=== PATIENT | female | born 1965 | race Caucasian/White ===

== ENCOUNTER 2017-06-15 18:49 | Emergency (ER) | payer MEDICAID ==
[2017-06-15] MEDS ORDERED: Sodium Chloride 0.9% 1,000 ML IV STA (20:59)
[2017-06-15] MEDS ORDERED: Sodium Chloride 0.9% 10 ML Syringe FLUSH PRN ×2 (20:59→21:34)
[2017-06-15] MEDS ORDERED: Ondansetron 4 MG/2 ML SDV IVPUSH ONE (21:03)
[2017-06-15] MEDS ORDERED: HYDROmorphone 1 MG/ML Syringe IVPUSH ONE (21:03)
--- NOTE | 2017-06-15 21:07 | EDM.PDOC ---
ED HPI GENERAL MEDICAL PROBLEM - General Chief Complaint: Abdominal Pain Stated Complaint: RT SIDE ABD PAIN Time Seen by Provider: 06/15/17 20:48 Source of Information: Reports: Patient, Family, Provider, RN Notes Reviewed History Limitations: Reports: No Limitations - History of Present Illness INITIAL COMMENTS - FREE TEXT/NARRATIVE: 52-year-old female presents emergency department today sent over from clinic for right sided abdominal pain, she states really pain is developed over the last 24 hours has nausea with this describes the pain is constant denies any difficulty with urination or bowel movements, blood work done in the clinic show CBC with an elevated white count of 17,000 and a urinalysis shows trace leukocyte esterase moderate squamous cells. 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 OB/BYN History: R OVARY REMOVED Social & Family History - Tobacco Use Smoking Status *Q: Current Every Day Smoker Years of Tobacco use: 40 Packs/Tins Daily: 0.5 Used Tobacco, but Quit: No Second Hand Smoke Exposure: Yes - Alcohol Use Days Per Week of Alcohol Use: 1 Number of Drinks Per Day: 2 Total Drinks Per Week: 2 - Recreational Drug Use Recreational Drug Use: No ED ROS GENERAL - Review of Systems Review Of Systems: See Below Constitutional: Denies: Fever, Chills HEENT: Reports: No Symptoms Respiratory: Reports: No Symptoms Cardiovascular: Reports: No Symptoms GI/Abdominal: Reports: Abdominal Pain, Nausea. Denies: Constipation, Diarrhea, Vomiting : Reports: Flank Pain. Denies: Discharge Musculoskeletal: Reports: No Symptoms Skin: Reports: No Symptoms Neurological: Reports: No Symptoms ED EXAM, GI/ABD - Physical Exam Exam: See Below Exam Limited By: No Limitations General Appearance: Alert, WD/WN, No Apparent Distress Head: Atraumatic, Normocephalic Neck: Normal Inspection, Supple, Non-Tender, Full Range of Motion Respiratory/Chest: No Respiratory Distress, Lungs Clear, Normal Breath Sounds, No Accessory Muscle Use Cardiovascular: Regular Rate, Rhythm, No Murmur GI/Abdominal: Soft, Tenderness (Generalized tenderness of the right flank area) Back Exam: Normal Inspection, Full Range of Motion. No: CVA Tenderness (R), CVA Tenderness (L) Neurological: Alert, Oriented Course - Vital Signs Last Recorded V/S: Last Vital Signs Temp 97.8 F 06/15/17 20:42 Pulse 80 06/15/17 20:42 Resp 20 06/15/17 20:42 BP 141/85 H 06/15/17 20:42 Pulse Ox 95 06/15/17 20:42 - Orders/Labs/Meds Orders: Active Orders 24 hr Category Date Time Status Peripheral IV Care [RC] . DIRECTED Care 06/15/17 21:00 Active Abdomen Pelvis w Cont [CT] Urgent Exams 06/15/17 20:59 Taken Iopamidol [Isovue-300 (61%)] Med 06/15/17 21:45 Active 110 ml IV . DIRECTED Sodium Chloride 0.9% [Saline Flush] Med 06/15/17 20:59 Active 10 ml FLUSH ASDIRECTED PRN Sodium Chloride 0.9% [Saline Flush] Med 06/15/17 21:34 Active 10 ml FLUSH ONETIME PRN Peripheral IV Insertion Adult [OM.PC] Urgent Oth 06/15/17 20:59 Ordered Medication Orders Iopamidol (Isovue-300 (61%)) 110 ml IV . DIRECTED GRZEGORZ Last Admin: 06/15/17 22:24 Dose: 150 ml Sodium Chloride (Saline Flush) 10 ml FLUSH ASDIRECTED PRN PRN Reason: Keep Vein Open Last Admin: 06/15/17 21:53 Dose: 10 ml Sodium Chloride (Saline Flush) 10 ml FLUSH ONETIME PRN PRN Reason: PER RADIOLOGY PROTOCOL Last Admin: 06/15/17 22:23 Dose: 10 ml Labs: Laboratory Tests 06/15/17 06/15/17 Range/Units 21:10 21:10 Sodium 139 L (140-148) mmol/L Potassium 3.9 (3.6-5.2) mmol/L Chloride 105 (100-108) mmol/L Carbon Dioxide 27 (21-32) mmol/L Anion Gap 10.9 (5.0-14.0) mmol/L BUN 18 (7-18) mg/dL Creatinine 0.7 (0.6-1.0) mg/dL Est Cr Clr Drug Dosing 77.77 mL/min Estimated GFR (MDRD) > 60 (>60) Glucose 98 (74-106) mg/dL Lactic Acid 1.3 (0.4-2.0) mmol/L Calcium 8.5 (8.5-10.1) mg/dL Total Bilirubin 0.2 (0.2-1.0) mg/dL AST 15 (15-37) U/L ALT 45 (12-78) U/L Alkaline Phosphatase 92 (46-116) U/L Total Protein 7.5 (6.4-8.2) g/dL Albumin 3.4 (3.4-5.0) g/dL Globulin 4.1 H (2.3-3.5) g/dL Albumin/Globulin Ratio 0.8 L (1.2-2.2) Lipase 149 (73-393) U/L Meds: Medications Generic Name Dose Route Start Last Admin Trade Name Freq PRN Reason Stop Dose Admin Iopamidol 110 ml 06/15/17 21:45 06/15/17 22:24 Isovue-300 (61%) IV 150 ml . DIRECTED GRZEGORZ Administration Sodium Chloride 10 ml 06/15/17 20:59 06/15/17 21:53 Saline Flush FLUSH 10 ml ASDIRECTED PRN Administration Keep Vein Open Sodium Chloride 10 ml 06/15/17 21:34 06/15/17 22:23 Saline Flush FLUSH 10 ml ONETIME PRN Administration PER RADIOLOGY PROTOCOL Discontinued Medications Generic Name Dose Route Start Last Admin Trade Name Freq PRN Reason Stop Dose Admin Hydromorphone HCl 1 mg 06/15/17 21:03 06/15/17 21:56 Dilaudid IVPUSH 06/15/17 21:04 1 mg ONETIME ONE Administration Sodium Chloride 1,000 mls @ 500 mls/hr 06/15/17 20:59 06/15/17 21:50 Normal Saline IV 06/15/17 22:58 500 mls/hr .BOLUS STA Administration Sodium Chloride 73 mls @ 3 mls/sec 06/15/17 21:34 06/15/17 22:23 Normal Saline IV 06/15/17 21:35 3 mls/sec ONETIME ONE Administration Ondansetron HCl 4 mg 06/15/17 21:03 06/15/17 21:53 Zofran IVPUSH 06/15/17 21:04 4 mg ONETIME ONE Administration Departure - Departure Time of Disposition: 23:09 Disposition: Home, Self-Care 01 Condition: Fair Clinical Impression: Right flank pain - Discharge Information Forms: ED Department Discharge Additional Instructions: Use hydrocodone as needed for pain control, Please followup with your primary care provider in 3-5 days if not better, please call return to the emergency department with worsening of symptoms. - My Orders Last 24 Hours: My Active Orders 06/15/17 20:59 Abdomen Pelvis w Cont [CT] Urgent Sodium Chloride 0.9% [Saline Flush] 10 ml FLUSH ASDIRECTED PRN Peripheral IV Insertion Adult [OM.PC] Urgent 06/15/17 21:00 Peripheral IV Care [RC] . DIRECTED 06/15/17 21:34 Sodium Chloride 0.9% [Saline Flush] 10 ml FLUSH ONETIME PRN 06/15/17 21:45 Iopamidol [Isovue-300 (61%)] 110 ml IV . DIRECTED - Assessment/Plan Last 24 Hours: My Active Orders 06/15/17 20:59 Abdomen Pelvis w Cont [CT] Urgent Sodium Chloride 0.9% [Saline Flush] 10 ml FLUSH ASDIRECTED PRN Peripheral IV Insertion Adult [OM.PC] Urgent 06/15/17 21:00 Peripheral IV Care [RC] . DIRECTED 06/15/17 21:34 Sodium Chloride 0.9% [Saline Flush] 10 ml FLUSH ONETIME PRN 06/15/17 21:45 Iopamidol [Isovue-300 (61%)] 110 ml IV . DIRECTED Plan: Assessment Acuity = acute Site and laterality = right flank abdominal pain Etiology = unclear etiology Manifestations = none Location of injury = Home Lab values = CMP within normal limits CT scan shows no acute abdominal process Plan She will be discharged home with hydrocodone No. 10 follow-up with primary 3-5 days for reevaluation Patient was in agreement with the plan all questions were answered, they were instructed to return to the emergency department or call for worsening symptoms. This note was dictated using [employer] voice recognition software please call with any questions.
[2017-06-15] MEDS ORDERED: Iopamidol 612 MG/ML 150 ML Bottle IV SCH (21:45)
[2017-06-15 23:30] VITALS: BP 114/73
== END 2017-06-15 23:32 | disposition home or self-care (01) ==
LOC: JP.ED 18:49
DX: R10.9 Unspecified abdominal pain (principal); J45.909 Unspecified asthma, uncomplicated; F17.210 Nicotine dependence, cigarettes, uncomplicated; Z79.899 Other long term (current) drug therapy
CPT/HCPCS: 36415; 74177; 80053; 83605; 83690; 96374; 96375; 99284; J1170; J2405; J7030; J7040; J7050

== ENCOUNTER 2017-07-03 10:58 | Inpatient (IN) | payer MEDICAID ==
[~2017-07-03 10:58] MED LIST: Meropenem 500 MG SDV ONE
[2017-07-03] MEDS ORDERED: Dextrose 5%-Lactated Ringers 1,000 ML IV SCH (11:00)
[2017-07-03] MEDS ORDERED: fentaNYL 25 MCG/HR Transdermal Patch TRDERM SCH (11:00)
[2017-07-03] MEDS ORDERED: Albuterol/Ipratropium 3.0-0.5 MG/3 ML Neb Soln NEB ONE (11:30)
[2017-07-03] MEDS ORDERED: Isosulfan Blue 5 ML SDV ONE (13:19)
[2017-07-03] MEDS ORDERED: Rocuronium 50 MG/5 ML Vial ONE (13:41)
[2017-07-03] MEDS ORDERED: Propofol 200 MG/20 ML SDV ONE (13:41)
[2017-07-03] MEDS ORDERED: Lidocaine 1% 2 ML ONE (13:41)
[2017-07-03] MEDS ORDERED: Ondansetron 4 MG/2 ML SDV ONE (13:42)
[2017-07-03] MEDS ORDERED: Neostigmine Methylsulfate 1 MG/ML 5 ML Syringe ONE (13:42)
[2017-07-03] MEDS ORDERED: Scopolamine 1.5 MG Transdermal Patch ONE (13:42)
[2017-07-03] MEDS ORDERED: Glycopyrrolate 0.2 MG/ML 5 ML MDV ONE (13:42)
[2017-07-03] MEDS ORDERED: Dexamethasone 4 MG/ML SDV ONE (13:42)
[2017-07-03] MEDS ORDERED: Ketorolac 60 MG/2 ML SDV ONE (13:42)
[2017-07-03] MEDS ORDERED: fentaNYL 100 MCG/2 ML SDV ONE ×2 (13:43→15:14)
[2017-07-03] MEDS ORDERED: Midazolam 1 MG/ML 2 ML SDV ONE (13:44)
[2017-07-03] MEDS ORDERED: Morphine 4 MG/ML Syringe ONE (14:46)
[2017-07-03] MEDS ORDERED: Naloxone 0.4 MG/ML SDV IVPUSH PRN (15:00)
[2017-07-03] MEDS: HYDROmorphone/Normal Saline 15 MG/30 ML PCA IV PRN (15:04)
[2017-07-03] MEDS ORDERED: Ondansetron 4 MG/2 ML SDV IV PRN (17:27)
[2017-07-03] MEDS ORDERED: Albuterol/Ipratropium 3.0-0.5 MG/3 ML Neb Soln INH PRN (17:29)
[2017-07-03] MEDS: cefOXitin 2 GM in Sodium Chloride 0.9% 50 ML IV ONE ×2 (17:38→18:58)
[2017-07-03] MEDS: cefOXitin 2 GM in Sodium Chloride 0.9% 50 ML IV SCH (18:38)
[2017-07-03] MEDS: VERIFY FENT PATCH TOP SCH ×2 (19:06→20:46)
[2017-07-03] MEDS: VERIFY SCOP PATCH TOP SCH (19:07)
[2017-07-03] MEDS: Pantoprazole 40 MG Vial IV SCH (19:54)
[2017-07-03] MEDS: Formoterol/Mometasone 200-5 MCG 8.8 GM Inhaler IH SCH (20:40)
[2017-07-03] MEDS: Albuterol/Ipratropium 3.0-0.5 MG/3 ML Neb Soln INH SCH (20:42)
[2017-07-03] MEDS: Dextrose 5%-Lactated Ringers 1,000 ML IV SCH (23:00)
[2017-07-04] MEDS: cefOXitin 2 GM in Sodium Chloride 0.9% 50 ML IV SCH ×2 (00:30→05:10)
[2017-07-04] MEDS: Dextrose 5%-Lactated Ringers 1,000 ML IV SCH ×4 (04:28→21:22)
[2017-07-04] MEDS: Albuterol/Ipratropium 3.0-0.5 MG/3 ML Neb Soln INH SCH ×4 (07:22→20:40)
[2017-07-04] MEDS: Formoterol/Mometasone 200-5 MCG 8.8 GM Inhaler IH SCH ×2 (07:29→20:20)
[2017-07-04] MEDS: VERIFY FENT PATCH TOP SCH ×2 (08:30→20:40)
[2017-07-04] MEDS: VERIFY SCOP PATCH TOP SCH (08:30)
[2017-07-04] MEDS: Allopurinol 300 MG Tab PO SCH (08:50)
[2017-07-04] MEDS ORDERED: Cyclobenzaprine 10 MG Tab PO PRN (09:03)
[2017-07-04] MEDS: HYDROmorphone/Normal Saline 15 MG/30 ML PCA IV PRN (13:25)
[2017-07-04] MEDS: Pantoprazole 40 MG Vial IV SCH (20:20)
[2017-07-04] MEDS: hydrOXYzine HCl 25 MG Tab PO PRN (21:31)
[2017-07-05] MEDS: Dextrose 5%-Lactated Ringers 1,000 ML IV SCH ×2 (05:22→15:43)
[2017-07-05] MEDS: Formoterol/Mometasone 200-5 MCG 8.8 GM Inhaler IH SCH ×2 (07:39→20:10)
[2017-07-05] MEDS: Albuterol/Ipratropium 3.0-0.5 MG/3 ML Neb Soln INH SCH ×4 (07:39→20:10)
[2017-07-05] MEDS: VERIFY FENT PATCH TOP SCH ×2 (08:09→20:11)
[2017-07-05] MEDS: Allopurinol 300 MG Tab PO SCH (08:09)
[2017-07-05] MEDS: VERIFY SCOP PATCH TOP SCH (08:10)
[2017-07-05] MEDS: Bisacodyl 5 MG Tab PO SCH ×2 (09:26→20:10)
[2017-07-05] MEDS: Magnesium Sulfate/Water 2 GM in Premix Bag 1 BAG IV SCH ×3 (09:27→20:10)
[2017-07-05] MEDS ORDERED: Potassium Phosphates 25 MMOLE in Sodium Chloride 0.9% 500 ML IV ONE (09:30)
--- NOTE | 2017-07-05 13:38 | PN ---
DATE OF SERVICE: 07/04/2017 The patient is postop day 1 from a total abdominal hysterectomy and left salpingo- oophorectomy with pelvic lymph node sampling. Clinically, she has done well at this point and will begin a clear liquid diet. Urine output is making a cut, so we will leave the IV running somewhat faster until later today. Otherwise, begin a clear liquid diet muscle spasm. We will add some Flexeril and/or Vistaril p.r.n. for that. Otherwise, maximize activity with a pulmonary toilet. Pete Barboza MD /[id number]
[2017-07-05] MEDS ORDERED: Potassium Phosphates 20 MMOLE in Sodium Chloride 0.9% 250 ML IV ONE (14:30)
[2017-07-05] MEDS: Pantoprazole 40 MG Tab.CR PO SCH (15:45)
[2017-07-05] MEDS: HYDROmorphone/Normal Saline 15 MG/30 ML PCA IV PRN (18:29)
[2017-07-06] MEDS: Magnesium Sulfate/Water 2 GM in Premix Bag 1 BAG IV SCH ×2 (02:17→09:56)
[2017-07-06] MEDS: Dextrose 5%-Lactated Ringers 1,000 ML IV SCH (04:51)
[2017-07-06] MEDS: Albuterol/Ipratropium 3.0-0.5 MG/3 ML Neb Soln INH SCH ×4 (07:32→20:18)
[2017-07-06] MEDS: Formoterol/Mometasone 200-5 MCG 8.8 GM Inhaler IH SCH ×2 (07:32→20:16)
--- NOTE | 2017-07-06 08:47 | PN ---
DATE OF SERVICE: 07/05/2017 The patient is postop day #2 from her hysterectomy and wedge resection of the adherent sigmoid colon, along with pelvic lymph node sampling. Clinically, she has done well. The Bauer catheter is removed today, and she has been able to urinate satisfactorily. The patient tolerated the clear-liquid diet very well, will go to full-liquid diet and begin some scheduled Dulcolax oral tablets, back down the IV rate, probably switch over to oral pain medication tomorrow. Pete Barboza MD /[id number]
--- NOTE | 2017-07-06 08:50 | PN ---
DATE OF SERVICE: 07/06/2017 SUBJECTIVE: Linda is postop day 3 following a total abdominal hysterectomy. She has been up ambulating. Her vital signs have been stable. Oral intake was 1720. She is passing flatus, but has not had a bowel movement. TWILA drains have put out 30 and 90 mL of a light pink drainage respectively. OBJECTIVE: GENERAL: Linda is a pleasant 52-year-old female. She is sitting up in the chair. Alert and orientated. VITAL SIGNS: TPR is 98.2, 88, 16, and blood pressure 118/59. HEENT: Negative. NECK: Supple. HEART: Regular rate and rhythm. LUNGS: Clear. ABDOMEN: Occlusive dressing on and abdominal binder has been on. EXTREMITIES: Without peripheral edema. ASSESSMENT: Exploratory laparotomy with total abdominal hysterectomy and left salpingo- oophorectomy, partial resection of sigmoid colon, mobilization of the omentum into pelvis for postmenopausal bleeding, dense adherence of right side of the uterus to sigmoid colon. Date of surgery, 07/03/2017. PLAN: 1. Discontinue FUEL MANAGER and continuous pulse ox. 2. Replace fentanyl patch. 3. Percocet 5/325 mg 1 to 2 every 4 hours p.r.n. pain. 4. Regular diet. 5. Work on good pulmonary toilet. 6. We will evaluate p.r.n. or in a.m. June Darby PA-C /[id number]
[2017-07-06] MEDS ORDERED: Scopolamine 1.5 MG Transdermal Patch TOP SCH (09:00)
[2017-07-06] MEDS: Acetaminophen/oxyCODONE 325-5 MG Tab PO PRN ×3 (09:51→20:19)
[2017-07-06] MEDS: Allopurinol 300 MG Tab PO SCH (09:55)
[2017-07-06] MEDS: Bisacodyl 5 MG Tab PO SCH ×2 (09:55→20:16)
[2017-07-06] MEDS: VERIFY FENT PATCH TOP SCH ×2 (09:57→19:59)
[2017-07-06] MEDS: VERIFY SCOP PATCH TOP SCH (09:57)
[2017-07-06] MEDS: Magnesium Oxide 400 MG Tab PO SCH (14:06)
[2017-07-06] MEDS ORDERED: fentaNYL 25 MCG/HR Transdermal Patch TRDERM SCH (14:30)
--- NOTE | 2017-07-06 15:32 | OR ---
DATE OF PROCEDURE: 07/03/2017 PREOPERATIVE DIAGNOSIS: Postmenopausal vaginal bleeding. POSTOPERATIVE DIAGNOSES: 1. Postmenopausal vaginal bleeding. 2. Dense adherence of right side of the uterus to sigmoid colon. OPERATIVE PROCEDURE: 1. Cervical injection of isosulfan blue dye for identification of sentinel lymph nodes (27816). 2. Exploratory laparotomy with: a. Total abdominal hysterectomy with left salpingo-oophorectomy and pelvic lymph node sampling (84826). b. Partial resection of sigmoid colon (53206). c. Mobilization of omentum into pelvis to displace small bowel from pelvis (52741). ANESTHESIA: General. ASSISTANTS: 1. June Darby PA-C. 2. SUSHIL Lord. INDICATION FOR PROCEDURE: This is a 52-year-old presenting with postmenopausal vaginal bleeding, and this has been ongoing for some months at this time. Ultrasound showed an endometrial stripe at the upper limit of normal, along with a fibroid. The patient did not want to have any preoperative biopsies of the endometrium. The plan will be to proceed with a total abdominal hysterectomy and pelvic lymph node sampling. The latter will be done in the event that there might be an endometrial carcinoma diagnosed on the final examination. We will inject some sentinel lymph node dye in the cervical area after induction, and this would allow us to most likely obtain sentinel lymph nodes, as opposed to full lymph node dissection, the lymph node dissection again being done in the event that there might be endometrial carcinoma identified on the final pathology report. Potential risks of the procedure including bleeding, infection, injury to the viscera in the area, injury to the urinary tract, such as the ureter or bladder, were all reviewed, along with the possibility of needing additional operative procedures for additional staging, depending on the pathologic findings, were gone over, and the patient wishes to proceed. DETAILS OF PROCEDURE: The patient was taken to the operating room and after general endotracheal anesthesia was induced, she was initially placed in a lithotomy position. The vaginal area was then prepped, and on each side of the vagina with a 22-gauge spinal needle, 2 mL of isosulfan blue dye were injected, and at that point the patient was then placed into a supine position, after a Bauer catheter had been placed. The abdomen was then prepped and draped and a transverse Pfannenstiel incision was made and carried down through the skin and subcutaneous tissue, (it had been discussed preoperatively that, should a more advanced malignancy be identified, we might need to have a secondary vertical incision for honeycutt staging) and this incision was then carried down through the skin and subcutaneous tissue and anterior rectus sheath. Subrectus sheath flaps were then raised superiorly and inferiorly and the midline peritoneum divided. The area of the pelvis was then inspected, some saline was placed and washings were obtained for cytology. There did not appear to be any gross evidence of malignancy. There was a dense adherence of the upper right side of the uterine fundus to the sigmoid colon. This was at the site of previous salpingo-oophorectomy, and for whatever reason, that healed with quite intense inflammation. As one tried to free that area up, it became evident that it was densely adherent enough to the sigmoid colon that a small ridge of sigmoid colon was then excised with a JAI purple load and left attached to the uterus. At this point, the uterus was mobilized upward and the left ovary and tube were then divided away from the infundibulopelvic ligament and broad ligament, and at that point, the broad ligament and round ligament on the right side were also divided. This all being done with kasi. The peritoneal reflection of bladder on the uterus was divided and the bladder was dissected down onto the upper vagina. The cardinal ligaments were then taken with JAI blue loads. At that point, the uterosacral ligaments were clamped and initially suture-ligated with 0 Vicryl stitch. The vagina just below the cervix was divided with electrocautery and the specimen consisting of the uterus and left tube and ovary were delivered from the field. The area was opened, and there was not any obvious evidence of endometrial carcinoma. The vaginal cuff was then closed with continuation of uterosacral ligament stitches, and at that point, the abdomen was irrigated with meropenem-containing saline solution. The dye could be seen going into the left side of the pelvis along the internal and external iliac chain. The peritoneum over the left side of the pelvis was then incised and the first node identified with blue dye, and this was excised and sent for pathologic examination. Above that, no additional nodes appeared to be dyed. On the right side there appeared to be blockade to the lymphatic flow, as there was no blue dye coming beyond the medial edge of the cervix. This is probably related to the previous surgery in that area, along with the dense inflammation. There is no gross lymphadenopathy present, some fatty and lymphatic tissue along that area was excised, but at this time, based on the findings thus far, there did not appear to be justification for a full pelvic lymph node dissection on that side. At that point the area of dissection was inspected, no further problems were noted. The Noble-Elizabeth drain was then placed through a stab wound in the mid abdomen, taken down into the depths of the pelvis over the vaginal cuff closure. The omentum was then mobilized downward into the pelvis to displace the small bowel out of the pelvis. In the event at some point the patient might need some radiation treatment and following this the midline peritoneum was approximated with a #2 Vicryl stitch, as was the anterior rectus sheath. Subcutaneous tissue was approximated with some 3-0 Vicryl stitch. A 10-Korean round Noble-Elizabeth drain was placed across the incision in the subcutaneous tissue plane and the skin was then closed with a 4-0 Vicryl subcuticular stitch. Steri- Strips were applied and drains fixed to skin with some 4-0 Vicryl stitch. The patient was taken to the recovery room in satisfactory condition. Physician clinic assistant, June Daryb PA-C, played an essential role in assisting in this case, helping to position the patient, retract structures as needed, as well as suturing and cutting sutures when indicated. Her presence improved the patient's safety and decreased operative time. Pete Barboza MD /[id number]
[2017-07-06] MEDS: Pantoprazole 40 MG Tab.CR PO SCH (16:16)
[2017-07-06] MEDS: hydrOXYzine HCl 25 MG Tab PO PRN (23:24)
[2017-07-07] MEDS: Acetaminophen/oxyCODONE 325-5 MG Tab PO PRN ×2 (01:43→05:48)
[2017-07-07] MEDS: Albuterol/Ipratropium 3.0-0.5 MG/3 ML Neb Soln INH SCH (07:24)
[2017-07-07] MEDS: Formoterol/Mometasone 200-5 MCG 8.8 GM Inhaler IH SCH (07:27)
[2017-07-07] MEDS: VERIFY FENT PATCH TOP SCH (08:48)
[2017-07-07] MEDS: VERIFY SCOP PATCH TOP SCH (08:49)
[2017-07-07] MEDS: Magnesium Oxide 400 MG Tab PO SCH (09:20)
[2017-07-07] MEDS: Allopurinol 300 MG Tab PO SCH (09:20)
[2017-07-07] MEDS: Bisacodyl 5 MG Tab PO SCH (09:20)
[2017-07-07 09:52] VITALS: BP 114/63
--- NOTE | 2017-07-07 15:02 | DISCH ---
ADMISSION DIAGNOSES: 1. Post menopausal bleeding. 2. Asthma. 3. Hypertension. 4. Nicotine addiction. DISCHARGE DIAGNOSES: 1. Cervical injection of Isosulfan blue dye for identification of sentinel lymph nodes. 2. Exploratory laparotomy with total abdominal hysterectomy with left salpingo- oophorectomy and pelvic lymph node sampling, partial resection of sigmoid colon, mobilization of the omentum into the pelvis, displaced small bowel from pelvis for post menopausal vaginal bleeding and dense adhesions of right side of the uterus to sigmoid colon. HISTORY: Linda Renae is a 52-year-old female presenting with postmenopausal vaginal bleeding which has been ongoing for several months. After preoperative evaluation and discussion of possible risks and possible complications, she wished to proceed with surgical procedure. HOSPITAL COURSE: Linda underwent surgery on 07/03/2017. She had no operative complications. On postoperative day #1, she was started on a clear liquid diet and Flexeril for muscle spasms. On postoperative day #2, Bauer catheter was removed, and she was urinating without difficulty. Her diet was advanced to a full liquid diet, and she was started on Dulcolax for bowel stimulation. On postoperative day #3, her EMT I/99 was discontinued. She was started on oral pain medication and regular diet. Her bowels still have not moved, and her activity was good. On postoperative day #4, she was ready to be discharged to home. She has not had a bowel movement but pain is controlled. Her activity is good and vital signs have been stable. PHYSICAL EXAMINATION: GENERAL: Linda Renae is a 52-year-old female. VITAL SIGNS: Height is 5 feet 3.5 inches, weight is 200 pounds, BMI is 34, TPR 97.1, 78, 18, blood pressure 132/74. HEENT: Negative. NECK: Supple. HEART: Regular rate and rhythm. LUNGS: Clear. ABDOMEN: Aquacel dressing is on, this will be removed prior to discharge. Her TWILA drains #1 and #2 have put out 7 and 30 mL respectively. TWILA drain #2 will be removed prior to discharge. EXTREMITIES: Without peripheral edema. DISPOSITION: Discharged to home. CONDITION: Stable and improving. MEDICATIONS: 1. Percocet 5/325 mg 1 to 2 oral q.4 hours p.r.n. pain #50. 2. Bisacodyl, Dulcolax 10 mg twice daily. 3. Milk of magnesia 30 mL, she is to take 1 daily. Two were sent home with the patient. 4. Magnesium 400 mg p.o. daily. 5. Fentanyl Duragesic patch 25 mcg transderm. She is to remove on 07/10/2017. Home medications: 1. Albuterol sulfate 8.5 g inhalation daily. 2. Allopurinol 100 mg oral daily. 3. Advair 250/50 Diskus one puff inhalation every 12 hours. 4. Motrin 800 mg every 6 hours p.r.n. DIET: After discharge, usual diet as tolerated. Drink 8 to 10 glasses of water a day. ACTIVITY: As tolerated. No lifting greater than 10 pounds for 6 weeks[address] Driving, do not drive on pain medication. Shower bathing, may shower. Notify provider if any fever, pain nausea, or vomiting. Wound incision care, keep site clean and dry. Wear abdominal binder for 2 weeks and then as tolerated. SPECIAL INSTRUCTION: Use incentive spirometer 10 times every hour while awake for 2 weeks.
== END 2017-07-07 09:40 | disposition home or self-care (01) | DRG 743 ==
LOC: JP.SDSSCHI 10:58 → JP.SDS 10:58 → EDSTATUS 16:25 → UNDOADMIN 17:10 → JP.2SS 17:10
PROVIDERS: ADMIT Surgery; ATTEND Surgery
PROC: 0UT90ZZ Resection of Uterus, Open Approach (ICD-10-PCS; principal; 2017-07-03)
PROC: 0UTC0ZZ Resection of Cervix, Open Approach (ICD-10-PCS; 2017-07-03)
PROC: 0UT70ZZ Resection of Bilateral Fallopian Tubes, Open Approach (ICD-10-PCS; 2017-07-03)
PROC: 0UT20ZZ Resection of Bilateral Ovaries, Open Approach (ICD-10-PCS; 2017-07-03)
PROC: 07BC0ZX Excision of Pelvis Lymphatic, Open Approach, Diagnostic (ICD-10-PCS; 2017-07-03)
PROC: 0DBN0ZZ Excision of Sigmoid Colon, Open Approach (ICD-10-PCS; 2017-07-03)
PROC: 0DNS0ZZ (ICD-10-PCS; 2017-07-03)
PROC: 3E0 Administration, Physiological Systems and Anatomical Regions, Introduction (ICD-10-PCS; 2017-07-03)
DX: N95.0 Postmenopausal bleeding (principal); N73.6 Female pelvic peritoneal adhesions (postinfective); J44.9 Chronic obstructive pulmonary disease, unspecified; F32.9 Major depressive disorder, single episode, unspecified; F17.210 Nicotine dependence, cigarettes, uncomplicated
CPT/HCPCS: 36415; 80048; 83735; 84100; 85027; 86304; 88112; 88304; 88305; 88307; 94640-76; 94762; A9270-GY; C9113; J0131; J0694; J1100; J1170; J1885; J2020; J2185; J2250; J2270; J2405; J2704; J2710; J3010; J3475; J3490; J7040; J7042; J7050; J7620; Q9968

== ENCOUNTER 2017-11-05 07:24 | Day surgery (SDC) | payer MEDICAID ==
[2017-11-05] MEDS ORDERED: Sodium Chloride 0.9% 1,000 ML IV SCH (08:00)
[2017-11-05] MEDS ORDERED: Propofol 200 MG/20 ML SDV ONE (08:40)
[2017-11-05] MEDS ORDERED: fentaNYL 100 MCG/2 ML SDV ONE (08:40)
[2017-11-05] MEDS ORDERED: Midazolam 1 MG/ML 2 ML SDV ONE (08:40)
[2017-11-05 09:44] VITALS: BP 136/79
--- NOTE | 2017-11-05 13:49 | PROC ---
DATE OF PROCEDURE: 11/05/2017 INDICATION: Linda is a 52-year-old female, who has had difficulty swallowing with food coming up and a lot of reflux as well, and comes in for esophageal dilatation and esophagogastroduodenoscopy. The risks and benefits were explained to the patient prior to the procedure, and she was taken to the OR. PROCEDURE IN DETAIL: Anesthesia was given by nurse natural science manager. During the procedure, we used 2 mg of Versed, 100 mcg of fentanyl, and 130 mg of propofol. The Olympus 180 scope was used. The tube was placed into the mouth, into the pharynx, and into the esophagus without difficulty and advanced under direct vision. Upon entering the stomach, we immediately noted significant erythema in the pre-pyloric area with small ulcerations. The tube was advanced into the duodenum and then into the first and second part of the duodenum. Upon retraction of the tube, we noted no significant duodenal erythema. Tube was brought back into the stomach, which revealed small ulcerations. Biopsy was done for Helicobacter pylori, Oly. Air was insufflated, and we did get good observation of the greater and lesser curvatures, and the tube was retroflexed into the fundus, which revealed no abnormality. Again, we observed the greater and lesser curvatures and the site of the biopsy, and there was no significant bleeding noted. Air was withdrawn from the stomach. There was a small hiatal hernia noted. The Savary dilator guidewire was placed into the scope, and the scope was slowly retracted. We then put the 60-Stateless dilator over the guidewire, and the esophagus was dilated to 60-Stateless. The dilator was held in place for 1 minute. The tube was removed. There was no blood or abnormality noted on the dilator tube and tube was removed. The patient tolerated the procedure well. The guidewire was removed at the time of removal of the dilator. PREOPERATIVE DIAGNOSES: 1. Gastroesophageal reflux. 2. Antritis with small gastric ulcers. Biopsy report pending for Helicobacter pylori, CLOtest. I will speak with her once the biopsy report is reported. Parker Peter MD /[id number]
== END 2017-11-05 10:05 | disposition home or self-care (01) ==
LOC: JP.SDS 07:24
PROVIDERS: ATTEND Internal Medicine
DX: K25.9 Gastric ulcer, unspecified as acute or chronic, without hemorrhage or perforation (principal); K44.9 Diaphragmatic hernia without obstruction or gangrene; I10 Essential (primary) hypertension; J45.909 Unspecified asthma, uncomplicated; E66.9 Obesity, unspecified; F17.210 Nicotine dependence, cigarettes, uncomplicated; Z88.2 Allergy status to sulfonamides; Z68.30 Body mass index [BMI] 30.0-30.9, adult
CPT/HCPCS: 43239; 43248; 87081; J2250; J2704; J3010; J7040

== ENCOUNTER 2021-07-04 06:35 | Day surgery (SDC) | payer MEDICAID ==
[2021-07-04] MEDS ORDERED: Midazolam 1 MG/ML 2 ML SDV ONE (07:10)
[2021-07-04] MEDS ORDERED: Propofol 200 MG/20 ML SDV ONE (07:10)
[2021-07-04] MEDS ORDERED: fentaNYL 100 MCG/2 ML SDV ONE (07:10)
[2021-07-04] MEDS ORDERED: Sodium Chloride 0.9% 1,000 ML IV SCH (07:30)
[2021-07-04] MEDS ORDERED: Ondansetron 4 MG/2 ML SDV ONE (07:31)
[2021-07-04 08:43] VITALS: BP 138/78; PULSE 72
--- NOTE | 2021-07-04 09:33 | PROC ---
DATE OF PROCEDURE: SURGEON: Parker Peter MD INDICATIONS: Linda is a 56-year-old female who comes in for a colonoscopy. She is concerned that she may have something in the colon as she has a history in the family of diverticula and wants to make sure she does not have a colonic lesion. The risks and benefits were explained and the patient was taken to the OR. PROCEDURE IN DETAIL: Anesthesia was given by nurse pellet mill operator. The Olympus 180 scope was used and was placed into the rectum and advanced under direct vision. Examination of the rectum with a gloved finger was unremarkable. We advanced the tube, got in about 40 cm, it could not get out of the descending colon because of multiple diverticula. Multiple tries were done, was unable to advance. The procedure was terminated. On retraction of the tube, noted multiple diverticula. No other obvious pathology was noted. The tube was removed. The patient tolerated the procedure well. PREOPERATIVE DIAGNOSIS: Screening colonoscopy. POSTOPERATIVE DIAGNOSIS: Failed colonoscopy beyond the ascending colon secondary to diverticula and redundancy. Multiple diverticula that were evident, but no obvious lesion of any concern. Parker Peter MD /[id number]
== END 2021-07-04 09:06 | disposition home or self-care (01) ==
LOC: JP.SDS 06:35
PROVIDERS: ATTEND Internal Medicine
DX: Z12.11 Encounter for screening for malignant neoplasm of colon (principal); K57.30 Diverticulosis of large intestine without perforation or abscess without bleeding; K63.89 Other specified diseases of intestine
CPT/HCPCS: 45330; J2250; J2405; J2704; J3010; J7030

== ENCOUNTER 2021-08-04 18:02 | Inpatient (IN) | payer MEDICAID ==
--- NOTE | 2021-08-04 18:33 | EDM.PDOC ---
ED HPI GENERAL MEDICAL PROBLEM - General Chief Complaint: Respiratory Problem Stated Complaint: DIZZY,DIAHREA Time Seen by Provider: 08/04/21 18:17 Source of Information: Reports: Patient History Limitations: Reports: No Limitations - History of Present Illness INITIAL COMMENTS - FREE TEXT/NARRATIVE: Patient arrives during the COVID pandemic with concerns of dizziness and diarrh ea Source of information: patient No historical limitations Amina Renae notes loose watery stools occurring up to 6 times a day. She reports dry cough and feeling lightheaded. She reports constant chest heaviness nonradiating anterior nonripping. She reports she is difficulty getting the bathroom is been going in a bucket in her closet. She denies any runny nose, change in taste or smell. No loss of appetite. No fever. She has any Covid exposures. She is Covid vaccinated. Patient denies any weight change, leg swelling or hemoptysis. No orthopnea or PND. 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: Dysfunctional Uterine Bleeding, Endometriosis, Fibroids, 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 [employer]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 REMOVED Musculoskeletal History: Reports: Arthritis, Fracture, Gout, Osteoarthritis Psychiatric History: Reports: Depression Endocrine/Metabolic History: Reports: Obesity/BMI 30+ - Infectious Disease History Infectious Disease History: Reports: Chicken Pox - Past Surgical History HEENT Surgical History: Reports: Adenoidectomy, Tonsillectomy Respiratory Surgical History: Reports: None GI Surgical History: Reports: EGD Female Surgical History: Reports: Hysterectomy, Salpingo-Oophorectomy Endocrine Surgical History: Reports: None Musculoskeletal Surgical History: Reports: None Dermatological Surgical History: Reports: None Social & Family History - Family History Family Medical History: No Pertinent Family History - Caffeine Use Caffeine Use: Reports: Energy Drinks, Soda ED ROS GENERAL - Review of Systems Review Of Systems: See Below Constitutional: Reports: Malaise, Weakness HEENT: Reports: No Symptoms Respiratory: Reports: Shortness of Breath. Denies: Sputum, Hemoptysis Cardiovascular: Reports: Chest Pain, Dyspnea on Exertion. Denies: Edema, P alpitations, Syncope Endocrine: Reports: No Symptoms GI/Abdominal: Reports: Abdominal Pain, Diarrhea. Denies: Bloody Stool : Reports: No Symptoms Musculoskeletal: Reports: No Symptoms, Other (Walks with a cane at baseline.) Skin: Reports: No Symptoms Neurological: Reports: No Symptoms Psychiatric: Reports: No Symptoms Hematologic/Lymphatic: Reports: No Symptoms Immunologic: Reports: No Symptoms Free Text/Narrative/Comment: All other 10 systems negative, patient notes increasing difficulty to the bathroom and increasing shortness of breath. She walks with a cane at baseline is now been using a bucket in her closet instead of the bathroom due to her shortness of breath with activity. Patient denies any abdominal pain. She denies being on steroids. She denies any known sick or ill contact with [employer]. 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 She has had knee injections done last month. ED EXAM, GENERAL - Physical Exam Exam: See Below Exam Limited By: No Limitations General Appearance: Alert Ears: Normal External Exam Nose: Normal Inspection Head: Normocephalic Neck: Normal Inspection Respiratory/Chest: No Accessory Muscle Use, Chest Non-Tender. No: Crackles, Rales, Rhonchi, Wheezing, Accessory Muscle Use Cardiovascular: Normal Peripheral Pulses, Regular Rate, Rhythm, No Edema, No JVD, No Murmur, No Rub GI/Abdominal: Normal Bowel Sounds, Soft, Non-Tender Back Exam: Normal Inspection Extremities: Normal Inspection, Non-Tender, No Pedal Edema, Normal Capillary Refill, Other (There is no joint swelling or joint warmth. Knees bilaterally are without swelling redness or tenderness. Apartments are soft. No external edema) Neurological: Alert, Oriented Psychiatric: Normal Affect, Normal Mood Skin Exam: Warm, Dry, Intact, Normal Color, No Rash Lymphatic: No Adenopathy #1 Interpretation EKG Date: 08/04/21 Time: 18:44 Rhythm: NSR [place]: Normal P-Wave: Present QRS: Normal ST-T: Normal QT: Normal (Nonspecific intraventricular conduction delay) Course - Vital Signs Text/Narrative:: Patient underwent history and his examination. Patient placed on bus monitor. A stat EKG was obtained and reviewed. Portal chest x-rays obtained. Stool was collected and sent to lab for analysis. Life threats were considered. Patient on room air was noted have sats vary between 88 and 90% while speaking. Differential is quite broad. Patient been struggling at home with her symptomatology. She is not on steroids chronically. On examination in the ER she has no wheezing. She has not had improvement at home with her inhalers. 1924. Critical results from labs show low potassium. Oral potassium ordered. Chest x-ray portable hasb been interpreted myself-portable. Cardiomegaly. Opacities right greater than left hemithorax. soft tissue artifact ? covid . 2015: COVID NEG. d dimer elevated, procal neg. trop neg. bnp mild elevated. lasix IV and KCL po. 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 Covid negative. Diarrhea. Working differential includes CHF and/or potential PE. Alternatively atypical infections possible although procalcitonin is negative making bacterial infection unlikely. Patient is Covid vaccinated and a false negative Covid is always in the differential. Patient's symptoms are nonsuggestive of thoracic dissection, pericarditis or myocarditis. Patient requires inpatient bed, oxygen therapy and further interventions pending CT scan. She is appropriate for inpatient admission 2026: admit provider in ED, who will follow pending CTA. [facility] bed is appropriate clinically. oxygen started by MS previously, tolerating well. no wheezing\\ 2040: Naya Trevino notes patient is a Dr. Peter patient and should be admitted to Dr. Peter 2050: patient refusing diuretic until "Dr. Peter comes" per ED RN. 2101: Dr. Peter accepts for admission and will see in ED, [facility] bed 2204: rocephin ordered by Dr. Peter who accepts and wrote ordered. repeat covid test pending, which will be followed by Dr. Peter CTA chest reviewed with Dr. Peter, no PE. "Patchy ground glass opacities throughout the lungs may represent covid pneumonia". Last Recorded V/S: Last Vital Signs Temp 36.7 C 08/04/21 18:26 Pulse 87 08/04/21 22:11 Resp 18 08/04/21 18:26 BP 131/78 08/04/21 22:11 Pulse Ox 94 L 08/04/21 22:11 - Orders/Labs/Meds Orders: Active Orders 24 hr Category Date Time Status Patient Status [ADT] Routine ADT 08/04/21 21:27 Active Cardiac Monitoring [RC] .As Directed Care 08/04/21 18:36 Active Oxygen Therapy [RC] PRN Care 08/04/21 21:27 Active Peripheral IV Care [RC] . DIRECTED Care 08/04/21 18:37 Active Peripheral IV Care [RC] . DIRECTED Care 08/04/21 21:31 Active RT Post Treatment Assessment [RC] Click to Edit Care 08/04/21 21:34 Active VTE/DVT Education [RC] Per Unit Routine Care 08/04/21 21:27 Active Vital Signs [RC] Q4H Care 08/04/21 21:27 Active Regular Diet [DIET] Diet 08/05/21 Breakfast Active Chest 1V Frontal [CR] Stat Exams 08/04/21 18:36 Taken CORONAVIRUS COVID-19 TAHIRA [MOLEC] Routine Lab 08/04/21 21:31 Ordered CULTURE STOOL + SHIGATOX [RM] Stat Lab 08/04/21 18:51 Received Albuterol [Ventolin HFA] Med 08/04/21 21:32 Active 0 gm INH Q4H PRN Iopamidol [Isovue-370 (76%)] Med 08/04/21 20:15 Active 100 ml IV . DIRECTED Mometasone/Formoterol [Dulera 200-5 MCG] Med 08/04/21 21:45 Active 2 puff IH BID Sodium Chloride 0.9% [Normal Saline] 1,000 ml Med 08/04/21 21:30 Active IV ASDIRECTED Sodium Chloride 0.9% [Normal Saline] 100 ml Med 08/04/21 20:15 Active IV ASDIRECTED Sodium Chloride 0.9% [Saline Flush] Med 08/04/21 18:35 Active 10 ml FLUSH ASDIRECTED PRN Sodium Chloride 0.9% [Saline Flush] Med 08/04/21 21:26 Active 10 ml FLUSH ASDIRECTED PRN cefTRIAXone [Rocephin] 1 gm Med 08/04/21 22:00 Active Sodium Chloride 0.9% [Normal Saline] 50 ml IV Q24H predniSONE Med 08/04/21 21:36 Once 20 mg PO ONETIME ONE Peripheral IV Insertion Adult [OM.PC] Routine Oth 08/04/21 21:26 Ordered Peripheral IV Insertion Adult [OM.PC] Stat Oth 08/04/21 18:35 Ordered Resuscitation Status Routine Resus Stat 08/04/21 21:26 Ordered EKG 12 Lead [EK] Stat Ther 08/04/21 18:36 Ordered Medication Orders Albuterol (Albuterol 8 Gm Inhaler) 0 gm INH Q4H PRN PRN Reason: Shortness of Breath Sodium Chloride (Normal Saline) 100 mls @ 3 mls/sec IV ASDIRECTED GRZEGORZ Last Admin: 08/04/21 20:29 Dose: 3 mls/sec Documented by: STACMAG Sodium Chloride (Normal Saline) 1,000 mls @ 125 mls/hr IV ASDIRECTED GRZEGORZ Ceftriaxone Sodium 1 gm/ (Sodium Chloride) 50 mls @ 100 mls/hr IV Q24H GRZEGORZ Iopamidol (Iopamidol 755 Mg/Ml 100 Ml Bottle) 100 ml IV . DIRECTED [facility] Last Admin: 08/04/21 20:28 Dose: 100 ml Documented by: STACMAG Mometasone Furoate/Formoterol Fumar (Formoterol/Mometasone 200-5 Mcg 8.8 Gm Inhaler) 2 puff IH BID GRZEGORZ Prednisone (Prednisone 20 Mg Tab) 20 mg PO ONETIME ONE Stop: 08/04/21 21:37 Sodium Chloride (Sodium Chloride 0.9% 10 Ml Syringe) 10 ml FLUSH ASDIRECTED PRN PRN Reason: Keep Vein Open Sodium Chloride (Sodium Chloride 0.9% 10 Ml Syringe) 10 ml FLUSH ASDIRECTED PRN PRN Reason: Keep Vein Open Labs: Laboratory Tests 08/04/21 08/04/21 08/04/21 Range/Units 18:52 18:52 18:52 WBC 19.9 H (4.5-11.0) K/uL RBC 4.62 (3.30-5.50) M/uL Hgb 14.1 D (12.0-15.0) g/dL Hct 42.1 (36.0-48.0) % MCV 91 (80-98) fL MCH 31 (27-31) pg MCHC 34 (32-36) % Plt Count 368 (150-400) K/uL Neut % (Auto) 79.4 H (36-66) % Lymph % (Auto) 12.0 L (24-44) % [place] % (Auto) 7.0 H (2-6) % Eos % (Auto) 1.2 L (2-4) % Baso % (Auto) 0.4 (0-1) % D-Dimer, Quantitative 1752.74 H (0.0-500.0) ng/mL Sodium 135 L (140-148) mmol/L Potassium 2.9 L* (3.6-5.2) mmol/L Chloride 97 L (100-108) mmol/L Carbon Dioxide 27 (21-32) mmol/L Anion Gap 13.9 (5.0-14.0) mmol/L BUN 14 D (7-18) mg/dL Creatinine 0.7 (0.6-1.0) mg/dL Est Cr Clr Drug Dosing 74.23 mL/min Estimated GFR (MDRD) > 60 (>60) Glucose 116 H (74-106) mg/dL Calcium 8.9 (8.5-10.1) mg/dL Total Bilirubin 0.3 (0.2-1.0) mg/dL AST 23 (15-37) U/L ALT 58 (12-78) U/L Alkaline Phosphatase 99 (46-116) U/L Troponin I < 0.017 (0.000-0.056) ng/mL NT-Pro-B Natriuret Pep 492 H (5-125) pg/mL Total Protein 7.0 (6.4-8.2) g/dL Albumin 2.5 L (3.4-5.0) g/dL Globulin 4.5 H (2.3-3.5) g/dL Albumin/Globulin Ratio 0.6 L (1.2-2.2) Procalcitonin ng/mL SARS-CoV-2 RNA (TAHIRA) (NEGATIVE) 08/04/21 08/04/21 Range/Units 18:52 18:54 WBC (4.5-11.0) K/uL RBC (3.30-5.50) M/uL Hgb (12.0-15.0) g/dL Hct (36.0-48.0) % MCV (80-98) fL MCH (27-31) pg MCHC (32-36) % Plt Count (150-400) K/uL Neut % (Auto) (36-66) % Lymph % (Auto) (24-44) % [place] % (Auto) (2-6) % Eos % (Auto) (2-4) % Baso % (Auto) (0-1) % D-Dimer, Quantitative (0.0-500.0) ng/mL Sodium (140-148) mmol/L Potassium (3.6-5.2) mmol/L Chloride (100-108) mmol/L Carbon Dioxide (21-32) mmol/L Anion Gap (5.0-14.0) mmol/L BUN (7-18) mg/dL Creatinine (0.6-1.0) mg/dL Est Cr Clr Drug Dosing mL/min Estimated GFR (MDRD) (>60) Glucose (74-106) mg/dL Calcium (8.5-10.1) mg/dL Total Bilirubin (0.2-1.0) mg/dL AST (15-37) U/L ALT (12-78) U/L Alkaline Phosphatase (46-116) U/L Troponin I (0.000-0.056) ng/mL NT-Pro-B Natriuret Pep (5-125) pg/mL Total Protein (6.4-8.2) g/dL Albumin (3.4-5.0) g/dL Globulin (2.3-3.5) g/dL Albumin/Globulin Ratio (1.2-2.2) Procalcitonin 0.09 ng/mL SARS-CoV-2 RNA (TAHIRA) Negative (NEGATIVE) Meds: Medications Generic Name Dose Route Start Last Admin Trade Name Freq PRN Reason Stop Dose Admin Albuterol 0 gm 08/04/21 21:32 Albuterol 8 Gm Inhaler INH Q4H PRN Shortness of Breath Sodium Chloride 100 mls @ 3 mls/sec 08/04/21 20:15 08/04/21 20:29 Normal Saline IV 3 mls/sec ASDIRECTED GRZEGORZ Administration Sodium Chloride 1,000 mls @ 125 mls/hr 08/04/21 21:30 Normal Saline IV ASDIRECTED GRZEGORZ Ceftriaxone Sodium 1 gm/ 50 mls @ 100 mls/hr 08/04/21 22:00 Sodium Chloride IV Q24H GRZEGORZ Iopamidol 100 ml 08/04/21 20:15 08/04/21 20:28 Iopamidol 755 Mg/Ml 100 Ml Bottle IV 100 ml . DIRECTED GRZEGORZ Administration Mometasone Furoate/Formoterol Fumar 2 puff 08/04/21 21:45 Formoterol/Mometasone 200-5 Mcg 8.8 Gm Inhaler IH BID GRZEGORZ Prednisone 20 mg 08/04/21 21:36 Prednisone 20 Mg Tab PO 08/04/21 21:37 ONETIME ONE Sodium Chloride 10 ml 08/04/21 18:35 Sodium Chloride 0.9% 10 Ml Syringe FLUSH ASDIRECTED PRN Keep Vein Open Sodium Chloride 10 ml 08/04/21 21:26 Sodium Chloride 0.9% 10 Ml Syringe FLUSH ASDIRECTED PRN Keep Vein Open Discontinued Medications Generic Name Dose Route Start Last Admin Trade Name Freq PRN Reason Stop Dose Admin Furosemide 40 mg 08/04/21 20:03 Furosemide 40 Mg/4 Ml Vial IVPUSH 08/04/21 20:04 ONETIME ONE Potassium Chloride 20 meq 08/04/21 19:26 08/04/21 19:53 Potassium Chloride 10% 20 Meq/15 Ml Soln 15 Ml Ud Cup PO 08/04/21 19:27 20 meq ONETIME ONE Administration Prednisone 30 mg 08/04/21 21:45 Prednisone 20 Mg Tab PO 08/04/21 21:46 NOW ONE Sodium Chloride 10 ml 08/04/21 20:10 08/04/21 20:29 Sodium Chloride 0.9% 10 Ml Sdv FLUSH 08/04/21 20:11 10 ml ONETIME ONE Administration - Re-Assessments/Exams Free Text/Narrative Re-Assessment/Exam: EKG reviewed. Portable chest x-ray reviewed: my read shows scattered opacities through the right greater than left lung harp. There is borderline Cardiomegaly and soft tissue artifact. This is interpreted at the bedside at 1911. 08/04/21 19:10 Departure - Departure Time of Disposition: 21:12 (Dr. Peter) Disposition: Admitted As Inpatient 66 Clinical Impression: Respiratory failure with hypoxia, Lab test negative for COVID-19 virus, Elevated brain natriuretic peptide (BNP) level, Elevated d-dimer, Hypokalemia, Chest pain, Elevated white blood cell count, unspecified, COPD (chronic obstructive pulmonary disease), Diarrhea, Abnormal CT scan, lung - Discharge Information *PRESCRIPTION DRUG MONITORING PROGRAM REVIEWED*: No *COPY OF PRESCRIPTION DRUG MONITORING REPORT IN PATIENT ALLYSSA: No Referrals: Parker Peter Sr, MD [Primary Care Provider] - Forms: ED Department Discharge Additional Instructions: med tele bed, Sepsis Event Note (ED) - Focused Exam Vital Signs: Vital Signs Temp Pulse Resp BP Pulse Ox 08/04/21 22:11 87 131/78 94 L 08/04/21 21:13 87 143/75 H 91 L 08/04/21 20:12 90 149/92 H 92 L 08/04/21 19:45 94 118/67 90 L 08/04/21 18:26 36.7 C 96 18 125/63 90 L 08/04/21 18:19 36.7 C 96 18 125/63 86 L - Problem List Review Problem List Initiated/Reviewed/Updated: Yes - My Orders Last 24 Hours: My Active Orders 08/04/21 18:35 Sodium Chloride 0.9% [Saline Flush] 10 ml FLUSH ASDIRECTED PRN Peripheral IV Insertion Adult [OM.PC] Stat 08/04/21 18:36 Cardiac Monitoring [RC] .As Directed Chest 1V Frontal [CR] Stat EKG 12 Lead [EK] Stat 08/04/21 18:37 Peripheral IV Care [RC] . DIRECTED 08/04/21 18:51 CULTURE STOOL + SHIGATOX [RM] Stat 08/04/21 20:15 Iopamidol [Isovue-370 (76%)] 100 ml IV . DIRECTED Sodium Chloride 0.9% [Normal Saline] 100 ml IV ASDIRECTED - Assessment/Plan Last 24 Hours: My Active Orders 08/04/21 18:35 Sodium Chloride 0.9% [Saline Flush] 10 ml FLUSH ASDIRECTED PRN Peripheral IV Insertion Adult [OM.PC] Stat 08/04/21 18:36 Cardiac Monitoring [RC] .As Directed Chest 1V Frontal [CR] Stat EKG 12 Lead [EK] Stat 08/04/21 18:37 Peripheral IV Care [RC] . DIRECTED 08/04/21 18:51 CULTURE STOOL + SHIGATOX [RM] Stat 08/04/21 20:15 Iopamidol [Isovue-370 (76%)] 100 ml IV . DIRECTED Sodium Chloride 0.9% [Normal Saline] 100 ml IV ASDIRECTED Plan: Admit to inpatient Dr. Peter accepts as the Covid test is negative. The CT was reviewed and raises the possibility of a false negative Covid test. Patient treat empirically with Rocephin. Possibly have a component of CHF been considered. Pulmonary embolism, ACS has been excluded. No indication off myocardial infarction. Patient does have hypokalemia is been treated properly with oral potassium replacement. Inpatient status is appropriate.
[2021-08-04] MEDS ORDERED: Sodium Chloride 0.9% 10 ML Syringe FLUSH PRN ×2 (18:35→21:26)
[2021-08-04] MEDS ORDERED: Potassium Chloride 10% 20 MEQ/15 ML Soln 15 ML UD Cup PO ONE (19:26)
[2021-08-04] MEDS ORDERED: Furosemide 40 MG/4 ML VIAL IVPUSH ONE (20:03)
[2021-08-04] MEDS ORDERED: Sodium Chloride 0.9% 10 ML SDV FLUSH ONE (20:10)
[2021-08-04] MEDS ORDERED: Sodium Chloride 0.9% 100 ML IV SCH (20:15)
[2021-08-04] MEDS ORDERED: Iopamidol 755 Mg/ML 100 ML Bottle IV SCH (20:15)
--- NOTE | 2021-08-04 21:19 | CRLCT ---
For Patients: As a result of the Cures Act, medical imaging exams and procedure reports are released immediately into your electronic medical record. You may view this report before your referring provider. If you have questions, please contact your health care provider. INDICATION: Shortness of breath. TECHNIQUE: CT pulmonary angiogram with 79 cc of Isovue-370 given intravenously. FINDINGS: No pulmonary emboli. No aneurysmal dilatation of the thoracic aorta. No mediastinal or hilar adenopathy. No axillary adenopathy. The lungs show patchy ground-glass opacities throughout the lungs. No pneumothorax. No focal abnormalities identified in the visualized portions of the liver, spleen, pancreas, adrenal glands, and the upper portion of the kidneys. IMPRESSION: 1. No pulmonary emboli. 2. Patchy ground-glass opacities throughout the lungs may represent COVID pneumonia. Dictated by Ramses Clark MD @ 08/04/2021 9:16:41 PM Please note that all CT scans at this facility use dose modulation, iterative reconstruction, and/or weight-based dosing when appropriate to reduce radiation dose to as low as reasonably achievable. Dictated by: Ramses Clark MD @ 08/04/2021 21:16:50 (Electronically Signed)
[2021-08-04] MEDS ORDERED: Albuterol 8 GM Inhaler INH PRN (21:32)
[2021-08-04] MEDS ORDERED: predniSONE 20 MG Tab PO ONE ×2 (21:36→21:45)
--- NOTE | 2021-08-04 21:44 | PCM.HP.2 ---
H&P History of Present Illness - General Date of Service: 08/04/21 Admit Problem/Dx: Admission Diagnosis/Problem Admission Diagnosis/Problem Pneumonia - History of Present Illness Initial Comments - Free Text/Narative: Begun with shortness of breath 4 days ago with diarrhea brown in color and dizzy when she moves. Never Dx with Covid in the past. She was treated with Doxycycline for 10 days due to MRSA. She had cortisone injection of both knees 6 days ago. Severity: Moderate - Related Data Allergies/Adverse Reactions: Allergies Allergy/AdvReac Type Severity Reaction Status Date / Time Sulfa (Sulfonamide Allergy Other Verified 08/04/21 18:19 Antibiotics) Home Medications: Home Meds Fluticasone Propion/Salmeterol [Advair 250-50 Diskus] 1 puff IH Q12H 07/01/17 [History] Albuterol Sulfate [Proair Hfa] 2 puff IH Q4H PRN 07/03/17 [History] Past Medical History HEENT History: Reports: Impaired Vision Cardiovascular History: Reports: None, Other (See Below) (denies cad, chf.) Respiratory History: Reports: Asthma Gastrointestinal History: Reports: None Genitourinary History: Reports: None 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: Dysfunctional Uterine Bleeding, Endometriosis, Fibroids, Other OB/BYN History: R OVARY REMOVED Musculoskeletal History: Reports: Arthritis, Fracture, Gout, Osteoarthritis Psychiatric History: Reports: Depression Endocrine/Metabolic History: Reports: Obesity/BMI 30+ - Infectious Disease History Infectious Disease History: Reports: Chicken Pox - Past Surgical History HEENT Surgical History: Reports: Adenoidectomy, Tonsillectomy Respiratory Surgical History: Reports: None GI Surgical History: Reports: EGD Female Surgical History: Reports: Hysterectomy, Salpingo-Oophorectomy Endocrine Surgical History: Reports: None Musculoskeletal Surgical History: Reports: None Dermatological Surgical History: Reports: None Social & Family History - Family History Family Medical History: No Pertinent Family History - Tobacco Use Tobacco Use Status *Q: Current Every Day Tobacco User Years of Tobacco use: 30 Packs/Tins Daily: 1 - Caffeine Use Caffeine Use: Reports: Energy Drinks, Soda H&P Review of Systems - Review of Systems: Review Of Systems: See Below General: Reports: Weakness, Fatigue HEENT: Reports: No Symptoms Pulmonary: Reports: Shortness of Breath, Cough Cardiovascular: Reports: No Symptoms Gastrointestinal: Reports: Diarrhea, Decreased Appetite Genitourinary: Reports: No Symptoms Musculoskeletal: Reports: No Symptoms Skin: Reports: No Symptoms (Anxiety when unable to get a deep breath) Neurological: Reports: No Symptoms Exam - Exam Exam: See Below - Vital Signs Vital Signs: Last Vital Signs Temp 98.0 F 08/04/21 18:26 Pulse 87 08/04/21 21:13 Resp 18 08/04/21 18:26 BP 143/75 H 08/04/21 21:13 Pulse Ox 91 L 08/04/21 21:13 Weight: 235 lb - Exam General: Alert, Oriented, 4 HEENT: PERRLA, Hearing Intact, Mucosa Moist & [place], Nares Patent, Normal Nasal Septum, Posterior Pharynx Clear, Conjunctiva Clear, EOMI, EACs Clear, TMs Clear Neck: Supple, Trachea Midline, 2 Lungs: Clear to Auscultation Cardiovascular: Regular Rate, Regular Rhythm GI/Abdominal Exam: Normal Bowel Sounds, Soft, Non-Tender, No Organomegaly, No Distention, No Abnormal Bruit, No Mass, Pelvis Stable Peripheral Pulses: 1+: Radial (L), Radial (R) Skin: Warm Neuro Extensive - Motor, Sensory, Reflexes: CN II-XII Intact, Normal Gait, Normal Reflexes DTR: 1+: Bicep (L), Bicep (R) Psychiatric: Anxious - Patient Data Lab Results Last 24 hrs: Laboratory Results - last 24 hr 08/04/21 08/04/21 08/04/21 Range/Units 18:52 18:52 18:52 WBC 19.9 H (4.5-11.0) K/uL RBC 4.62 (3.30-5.50) M/uL Hgb 14.1 D (12.0-15.0) g/dL Hct 42.1 (36.0-48.0) % MCV 91 (80-98) fL MCH 31 (27-31) pg MCHC 34 (32-36) % Plt Count 368 (150-400) K/uL Neut % (Auto) 79.4 H (36-66) % Lymph % (Auto) 12.0 L (24-44) % [place] % (Auto) 7.0 H (2-6) % Eos % (Auto) 1.2 L (2-4) % Baso % (Auto) 0.4 (0-1) % D-Dimer, Quantitative 1752.74 H (0.0-500.0) ng/mL Sodium 135 L (140-148) mmol/L Potassium 2.9 L* (3.6-5.2) mmol/L Chloride 97 L (100-108) mmol/L Carbon Dioxide 27 (21-32) mmol/L Anion Gap 13.9 (5.0-14.0) mmol/L BUN 14 D (7-18) mg/dL Creatinine 0.7 (0.6-1.0) mg/dL Est Cr Clr Drug Dosing 74.23 mL/min Estimated GFR (MDRD) > 60 (>60) Glucose 116 H (74-106) mg/dL Calcium 8.9 (8.5-10.1) mg/dL Total Bilirubin 0.3 (0.2-1.0) mg/dL AST 23 (15-37) U/L ALT 58 (12-78) U/L Alkaline Phosphatase 99 (46-116) U/L Troponin I < 0.017 (0.000-0.056) ng/mL NT-Pro-B Natriuret Pep 492 H (5-125) pg/mL Total Protein 7.0 (6.4-8.2) g/dL Albumin 2.5 L (3.4-5.0) g/dL Globulin 4.5 H (2.3-3.5) g/dL Albumin/Globulin Ratio 0.6 L (1.2-2.2) Procalcitonin ng/mL SARS-CoV-2 RNA (TAHIRA) (NEGATIVE) 08/04/21 08/04/21 Range/Units 18:52 18:54 WBC (4.5-11.0) K/uL RBC (3.30-5.50) M/uL Hgb (12.0-15.0) g/dL Hct (36.0-48.0) % MCV (80-98) fL MCH (27-31) pg MCHC (32-36) % Plt Count (150-400) K/uL Neut % (Auto) (36-66) % Lymph % (Auto) (24-44) % [place] % (Auto) (2-6) % Eos % (Auto) (2-4) % Baso % (Auto) (0-1) % D-Dimer, Quantitative (0.0-500.0) ng/mL Sodium (140-148) mmol/L Potassium (3.6-5.2) mmol/L Chloride (100-108) mmol/L Carbon Dioxide (21-32) mmol/L Anion Gap (5.0-14.0) mmol/L BUN (7-18) mg/dL Creatinine (0.6-1.0) mg/dL Est Cr Clr Drug Dosing mL/min Estimated GFR (MDRD) (>60) Glucose (74-106) mg/dL Calcium (8.5-10.1) mg/dL Total Bilirubin (0.2-1.0) mg/dL AST (15-37) U/L ALT (12-78) U/L Alkaline Phosphatase (46-116) U/L Troponin I (0.000-0.056) ng/mL NT-Pro-B Natriuret Pep (5-125) pg/mL Total Protein (6.4-8.2) g/dL Albumin (3.4-5.0) g/dL Globulin (2.3-3.5) g/dL Albumin/Globulin Ratio (1.2-2.2) Procalcitonin 0.09 ng/mL SARS-CoV-2 RNA (TAHIRA) Negative (NEGATIVE) Result Diagrams: 08/04/21 18:52 08/04/21 18:52 Sepsis Event Note - Focused Exam Vital Signs: Vital Signs Temp Pulse Resp BP Pulse Ox 08/04/21 21:13 87 143/75 H 91 L 08/04/21 20:12 90 149/92 H 92 L 08/04/21 19:45 94 118/67 90 L 08/04/21 18:26 98.0 F 96 18 125/63 90 L 08/04/21 18:19 98.0 F 96 18 125/63 86 L Problem List Initiated/Reviewed/Updated: Yes Orders Last 24hrs: Active Orders 24 hr Category Date Time Status Patient Status [ADT] Routine ADT 08/04/21 21:27 Ordered Cardiac Monitoring [RC] .As Directed Care 08/04/21 18:36 Active Oxygen Therapy [RC] PRN Care 08/04/21 21:27 Ordered Peripheral IV Care [RC] . DIRECTED Care 08/04/21 18:37 Active Peripheral IV Care [RC] . DIRECTED Care 08/04/21 21:31 Ordered RT Post Treatment Assessment [RC] Click to Edit Care 08/04/21 21:34 Ordered VTE/DVT Education [RC] Per Unit Routine Care 08/04/21 21:27 Ordered Vital Signs [RC] Q4H Care 08/04/21 21:27 Ordered Regular Diet [DIET] Diet 08/05/21 Breakfast Ordered Chest 1V Frontal [CR] Stat Exams 08/04/21 18:36 Taken CORONAVIRUS COVID-19 TAHIRA [MOLEC] Routine Lab 08/04/21 21:31 Ordered CULTURE STOOL + SHIGATOX [RM] Stat Lab 08/04/21 18:51 Received Albuterol [Ventolin HFA] Med 08/04/21 21:32 Ordered 2 puff INH Q4H PRN Fluticasone Propion/Salmeterol [Advair 250-50 Diskus] Med 08/04/21 21:45 Ordered 1 puff IH Q12H Iopamidol [Isovue-370 (76%)] Med 08/04/21 20:15 Active 100 ml IV . DIRECTED Sodium Chloride 0.9% @ 125 MLS/HR (1000ml) Med 08/04/21 21:30 Ordered Sodium Chloride 0.9% [Normal Saline] 1,000 ml IV ASDIRECTED Sodium Chloride 0.9% [Normal Saline] 100 ml Med 08/04/21 20:15 Active IV ASDIRECTED Sodium Chloride 0.9% [Saline Flush] Med 08/04/21 18:35 Active 10 ml FLUSH ASDIRECTED PRN Sodium Chloride 0.9% [Saline Flush] Med 08/04/21 21:26 Ordered 10 ml FLUSH ASDIRECTED PRN cefTRIAXone [Rocephin] 1 gm Med 08/04/21 22:00 Pending Sodium Chloride 0.9% [Normal Saline] 50 ml IV Q24H predniSONE Med 08/04/21 21:36 Once 20 mg PO ONETIME ONE Peripheral IV Insertion Adult [OM.PC] Routine Oth 08/04/21 21:26 Ordered Peripheral IV Insertion Adult [OM.PC] Stat Oth 08/04/21 18:35 Ordered Resuscitation Status Routine Resus Stat 08/04/21 21:26 Ordered EKG 12 Lead [EK] Stat Ther 08/04/21 18:36 Ordered Medication Orders Albuterol (Albuterol 8 Gm Inhaler) gm INH Q4H PRN PRN Reason: Shortness of Breath Sodium Chloride (Normal Saline) 100 mls @ 3 mls/sec IV ASDIRECTED [facility], [facility] Last Admin: 08/04/21 20:29 Dose: 3 mls/sec Documented by: STANATYAG Sodium Chloride (Normal Saline) 1,000 mls @ 125 mls/hr IV ASDIRECTED [facility] Ceftriaxone Sodium 1 gm/ (Sodium Chloride) 50 mls @ 100 mls/hr IV Q24H GRZEGORZ Iopamidol (Iopamidol 755 Mg/Ml 100 Ml Bottle) 100 ml IV . DIRECTED [facility], [facility] Last Admin: 08/04/21 20:28 Dose: 100 ml Documented by: VERONICA Non-Formulary Medication (Fluticasone Propion/Salmeterol [Advair 250-50 Diskus]) 1 puff IH Q12H GRZEGORZ Sodium Chloride (Sodium Chloride 0.9% 10 Ml Syringe) 10 ml FLUSH ASDIRECTED PRN PRN Reason: Keep Vein Open Sodium Chloride (Sodium Chloride 0.9% 10 Ml Syringe) 10 ml FLUSH ASDIRECTED PRN PRN Reason: Keep Vein Open Assessment/Plan Comment:: Assessment/Plan: Pneumonia with respiratory distress: Pulse ox 91 % CXR reveals ground glass infiltrates. Covid test neg so far. Will start of Rocephin one gram q 24 hrs. WBC elevated 19.9 with a left shift. #2. Diarrhea: c-dif pending. #3. History of HTN #4. BMI Elevated #5. History of C. Dif, MRSA, Toxoplasmosis, Depression, gout - Mortality Measure Prognosis:: Good
[2021-08-04] MEDS ORDERED: Formoterol/Mometasone 200-5 MCG 8.8 GM Inhaler IH SCH (21:45)
[2021-08-04] MEDS: Sodium Chloride 0.9% 1,000 ML IV SCH (23:24)
[2021-08-04] MEDS: cefTRIAXone 1 GM in Sodium Chloride 0.9% 50 ML IV SCH (23:25)
[2021-08-05] MEDS: Sodium Chloride 0.9% 1,000 ML IV SCH ×2 (07:06→17:24)
[2021-08-05] MEDS: Formoterol/Mometasone 200-5 MCG 8.8 GM Inhaler IH SCH ×2 (07:36→21:43)
[2021-08-05] MEDS: predniSONE 5 MG Tab PO SCH ×3 (08:47→17:21)
--- NOTE | 2021-08-05 13:24 | CR ---
CHEST: Portable 08/04/2021 at 7:17 PM CLINICAL HISTORY:Chest pain COMPARISON:None FINDINGS: Patient has diffuse bilateral pulmonary infiltrates. The heart is enlarged. Pulmonary vascularity is obscured. There are no effusions. Impression: Diffuse bilateral pulmonary infiltrates
[2021-08-05] MEDS ORDERED: predniSONE 10 MG Tab PO SCH (21:00)
[2021-08-05] MEDS: cefTRIAXone 1 GM in Sodium Chloride 0.9% 50 ML IV SCH (21:43)
--- NOTE | 2021-08-05 22:02 | PCM.PN ---
- General Info Date of Service: 08/05/21 Subjective Update: She feels better today but will has mild SOB - Review of Systems General: Reports: Weakness Pulmonary: Reports: Sputum Cardiovascular: Reports: No Symptoms Gastrointestinal: Reports: Decreased Appetite Musculoskeletal: Reports: No Symptoms Neurological: Reports: Weakness Psychiatric: Reports: Anxiety - Patient Data Vitals - Most Recent: Last Vital Signs Temp 96.5 F L 08/05/21 19:44 Pulse 84 08/05/21 19:44 Resp 16 08/05/21 19:44 BP 131/71 08/05/21 19:44 Pulse Ox 94 L 08/05/21 19:44 Weight - Most Recent: 226 lb I&O - Last 24 Hours: Intake & Output 08/05/21 08/05/21 08/05/21 06:59 14:59 22:59 Intake Total 50 500 1936 Output Total 250 125 Balance 50 250 1811 Lab Results Last 24 Hours: Laboratory Results - last 24 hr 08/04/21 08/05/21 08/05/21 Range/Units 21:31 08:22 08:22 WBC 16.3 H (4.5-11.0) K/uL RBC 4.44 (3.30-5.50) M/uL Hgb 13.2 (12.0-15.0) g/dL Hct 39.9 (36.0-48.0) % MCV 90 (80-98) fL MCH 30 (27-31) pg MCHC 33 (32-36) % Plt Count 355 (150-400) K/uL Add Manual Diff Yes Neutrophils % (Manual) 87 H (36-66) % Band Neutrophils % 1 L (5-11) % Lymphocytes % (Manual) 9 L (24-44) % Monocytes % (Manual) 3 (2-6) % Sodium 135 L (140-148) mmol/L Potassium 3.7 (3.6-5.2) mmol/L Chloride 100 (100-108) mmol/L Carbon Dioxide 27 (21-32) mmol/L Anion Gap 11.7 (5.0-14.0) mmol/L BUN 13 (7-18) mg/dL Creatinine 0.7 (0.6-1.0) mg/dL Est Cr Clr Drug Dosing 74.23 mL/min Estimated GFR (MDRD) > 60 (>60) Glucose 132 H (74-106) mg/dL Calcium 8.5 (8.5-10.1) mg/dL SARS-CoV-2 RNA (TAHIRA) Negative (NEGATIVE) Antony Results Last 24 Hours: Microbiology 08/04/21 18:51 Stool Culture - Preliminary Stool / Feces NORMAL ENTERIC RUBI 1 DAY Shiga Toxin I - Final NEGATIVE FOR SHIGA TOXIN 1 Shiga Toxin II - Final NEGATIVE FOR SHIGA TOXIN 2 REFERENCE RANGE: NEGATIVE Med Orders - Current: Current Medications Albuterol (Albuterol 8 Gm Inhaler) 0 gm INH Q4H PRN PRN Reason: Shortness of Breath Sodium Chloride (Normal Saline) 1,000 mls @ 75 mls/hr IV ASDIRECTED [facility] Last Admin: 08/05/21 17:24 Dose: 75 mls/hr Documented by: Ceftriaxone Sodium 1 gm/ (Sodium Chloride) 50 mls @ 100 mls/hr IV Q24H [facility] Last Admin: 08/05/21 21:43 Dose: 100 mls/hr Documented by: Mometasone Furoate/Formoterol Fumar (Formoterol/Mometasone 200-5 Mcg 8.8 Gm Inhaler) 2 puff IH BIDRT [facility] Last Admin: 08/05/21 21:43 Dose: 2 puff Documented by: Prednisone (Prednisone 5 Mg Tab) 5 mg PO QIDPCANDBED [facility] Stop: 08/06/21 21:01 Prednisone (Prednisone 5 Mg Tab) 5 mg PO TID [facility] Stop: 08/07/21 21:01 Prednisone (Prednisone 5 Mg Tab) 5 mg PO BID [facility] Stop: 08/08/21 21:01 Prednisone (Prednisone 5 Mg Tab) 5 mg PO DAILY [facility] Stop: 08/09/21 09:01 Sodium Chloride (Sodium Chloride 0.9% 10 Ml Syringe) 10 ml FLUSH ASDIRECTED PRN PRN Reason: Keep Vein Open Discontinued Medications Furosemide (Furosemide 40 Mg/4 Ml Vial) 40 mg IVPUSH ONETIME ONE Stop: 08/04/21 20:04 Last Admin: 08/04/21 22:53 Dose: Not Given Documented by: Sodium Chloride (Normal Saline) 100 mls @ 3 mls/sec IV ASDIRECTED [facility] Last Admin: 08/04/21 20:29 Dose: 3 mls/sec Documented by: Iopamidol (Iopamidol 755 Mg/Ml 100 Ml Bottle) 100 ml IV . DIRECTED [facility] Last Admin: 08/04/21 20:28 Dose: 100 ml Documented by: Mometasone Furoate/Formoterol Fumar (Formoterol/Mometasone 200-5 Mcg 8.8 Gm Inhaler) 2 puff IH BID [facility] Last Admin: 08/04/21 23:30 Dose: 2 puff Documented by: Potassium Chloride (Potassium Chloride 10% 20 Meq/15 Ml Soln 15 Ml Ud Cup) 20 meq PO ONETIME ONE Stop: 08/04/21 19:27 Last Admin: 08/04/21 19:53 Dose: 20 meq Documented by: Prednisone (Prednisone 20 Mg Tab) 20 mg PO ONETIME ONE Stop: 08/04/21 21:37 Last Admin: 08/05/21 01:03 Dose: Not Given Documented by: Prednisone (Prednisone 20 Mg Tab) 30 mg PO NOW ONE Stop: 08/04/21 21:46 Last Admin: 08/04/21 23:36 Dose: 30 mg Documented by: Prednisone (Prednisone 5 Mg Tab) 5 mg PO TIDMEALS GRZEGORZ Stop: 08/05/21 17:01 Last Admin: 08/05/21 17:21 Dose: 5 mg Documented by: Prednisone (Prednisone 10 Mg Tab) 10 mg PO BEDTIME GRZEGORZ Stop: 08/05/21 21:01 Last Admin: 08/05/21 21:43 Dose: 10 mg Documented by: Sodium Chloride (Sodium Chloride 0.9% 10 Ml Syringe) 10 ml FLUSH ASDIRECTED PRN PRN Reason: Keep Vein Open Sodium Chloride (Sodium Chloride 0.9% 10 Ml Sdv) 10 ml FLUSH ONETIME ONE Stop: 08/04/21 20:11 Last Admin: 08/04/21 20:29 Dose: 10 ml Documented by: - Exam General: Alert, Cooperative HEENT: Pupils Equal, Pupils Reactive, EOMI, Mucous Membr. Moist/[place] Neck: Supple Lungs: Clear to Auscultation, Normal Respiratory Effort Cardiovascular: Regular Rate GI/Abdominal Exam: Normal Bowel Sounds, Soft, Non-Tender Extremities: Normal Inspection Peripheral Pulses: 1+: Radial (L), Radial (R) Skin: Warm, Dry, Intact Wound/Incisions: Healing Well Neurological: No New Focal Deficit Psy/Mental Status: Alert, Normal Affect, Normal Mood - Patient Data Lab Results Last 24 hrs: Laboratory Results - last 24 hr 08/04/21 08/05/21 08/05/21 Range/Units 21:31 08:22 08:22 WBC 16.3 H (4.5-11.0) K/uL RBC 4.44 (3.30-5.50) M/uL Hgb 13.2 (12.0-15.0) g/dL Hct 39.9 (36.0-48.0) % MCV 90 (80-98) fL MCH 30 (27-31) pg MCHC 33 (32-36) % Plt Count 355 (150-400) K/uL Add Manual Diff Yes Neutrophils % (Manual) 87 H (36-66) % Band Neutrophils % 1 L (5-11) % Lymphocytes % (Manual) 9 L (24-44) % Monocytes % (Manual) 3 (2-6) % Sodium 135 L (140-148) mmol/L Potassium 3.7 (3.6-5.2) mmol/L Chloride 100 (100-108) mmol/L Carbon Dioxide 27 (21-32) mmol/L Anion Gap 11.7 (5.0-14.0) mmol/L BUN 13 (7-18) mg/dL Creatinine 0.7 (0.6-1.0) mg/dL Est Cr Clr Drug Dosing 74.23 mL/min Estimated GFR (MDRD) > 60 (>60) Glucose 132 H (74-106) mg/dL Calcium 8.5 (8.5-10.1) mg/dL SARS-CoV-2 RNA (TAHIRA) Negative (NEGATIVE) Result Diagrams: 08/05/21 08:22 08/05/21 08:22 Antony Results Last 24 hrs: Microbiology 08/04/21 18:51 Stool Culture - Preliminary Stool / Feces NORMAL ENTERIC RUBI 1 DAY Shiga Toxin I - Final NEGATIVE FOR SHIGA TOXIN 1 Shiga Toxin II - Final NEGATIVE FOR SHIGA TOXIN 2 REFERENCE RANGE: NEGATIVE Sepsis Event Note - Evaluation Sepsis Screening Result: Possible Sepsis Risk - Focused Exam Vital Signs: Vital Signs Temp Pulse Resp BP Pulse Ox 08/05/21 19:44 96.5 F L 84 16 131/71 94 L 08/05/21 14:36 97.1 F 79 18 134/76 93 L 08/05/21 11:00 95.8 F L 83 18 126/73 93 L - Problem List Review Problem List Initiated/Reviewed/Updated: Yes - My Orders Last 24 Hours: My Active Orders 08/04/21 21:26 Sodium Chloride 0.9% [Saline Flush] 10 ml FLUSH ASDIRECTED PRN Peripheral IV Insertion Adult [OM.PC] Routine Resuscitation Status Routine 08/04/21 21:27 Patient Status [ADT] Routine Oxygen Therapy [RC] PRN VTE/DVT Education [RC] Per Unit Routine Vital Signs [RC] Q4H 08/04/21 21:30 Sodium Chloride 0.9% [Normal Saline] 1,000 ml IV ASDIRECTED 08/04/21 21:31 Peripheral IV Care [RC] . DIRECTED 08/04/21 21:32 Albuterol [Ventolin HFA] 0 gm INH Q4H PRN 08/04/21 21:34 RT Post Treatment Assessment [RC] Click to Edit 08/04/21 22:00 cefTRIAXone [Rocephin] 1 gm Sodium Chloride 0.9% [Normal Saline] 50 ml IV Q24H 08/05/21 07:30 Mometasone/Formoterol [Dulera 200-5 MCG] 2 puff IH BIDRT 08/05/21 Breakfast Regular Diet [DIET] 08/05/21 13:34 Antiembolic Devices [RC] .Routine Sequential Compression Device [OM.PC] Routine 08/06/21 09:00 predniSONE 5 mg PO QIDPCANDBED 08/07/21 09:00 predniSONE 5 mg PO TID 08/08/21 09:00 predniSONE 5 mg PO BID 08/09/21 09:00 predniSONE 5 mg PO DAILY - Plan Plan:: Assessment/Plan: Pneumonia with respiratory distress: Pulse ox 94% on 2 L O2 CXR reveals ground glass infiltrates. Covid test negr. Will continue wit Rocephin one gram q 24 hrs. WBC elevated 16 with a left shift. #2. Diarrhea: c-dif pending #3. History of HTN #4. BMI Elevated #5. History of C. Dif, MRSA, Toxoplasmosis, Depression, gout
[2021-08-06] MEDS: Formoterol/Mometasone 200-5 MCG 8.8 GM Inhaler IH SCH ×2 (07:03→20:31)
[2021-08-06] MEDS: Sodium Chloride 0.9% 1,000 ML IV SCH (07:21)
[2021-08-06] MEDS: predniSONE 5 MG Tab PO SCH ×4 (09:31→20:35)
--- NOTE | 2021-08-06 13:04 | CR ---
CHEST: 2 view CLINICAL HISTORY:Pneumonia COMPARISON:CT 08/04/2021 FINDINGS: Patient has persistent diffuse bilateral pulmonary infiltrates similar to 08/04/2021. Heart size and pulmonary vascularity are normal. No effusions are seen. IMPRESSION: Diffuse bilateral pulmonary infiltrates similar to prior study
[2021-08-06] MEDS: cefTRIAXone 1 GM in Sodium Chloride 0.9% 50 ML IV SCH (21:08)
--- NOTE | 2021-08-06 22:00 | PCM.PN ---
- General Info Date of Service: 08/06/21 Functional Status: Reports: Pain Controlled - Review of Systems General: Reports: Weakness, Fatigue HEENT: Reports: No Symptoms Pulmonary: Reports: No Symptoms Cardiovascular: Reports: No Symptoms Gastrointestinal: Reports: No Symptoms Genitourinary: Reports: Retention Neurological: Reports: Difficulty Walking, Weakness, Gait Disturbance - Patient Data Vitals - Most Recent: Last Vital Signs Temp 97.0 F 08/06/21 18:50 Pulse 79 08/06/21 18:50 Resp 16 08/06/21 18:50 BP 129/65 08/06/21 18:50 Pulse Ox 95 08/06/21 18:50 Weight - Most Recent: 226 lb 0.004 oz I&O - Last 24 Hours: Intake & Output 08/06/21 08/06/21 08/06/21 06:59 14:59 22:59 Intake Total 1318 2049 300 Balance 1318 2049 300 Antony Results Last 24 Hours: Microbiology 08/04/21 18:51 Stool Culture - Preliminary Stool / Feces NORMAL ENTERIC RUBI 2 DAYS Shiga Toxin I - Final NEGATIVE FOR SHIGA TOXIN 1 Shiga Toxin II - Final NEGATIVE FOR SHIGA TOXIN 2 REFERENCE RANGE: NEGATIVE Med Orders - Current: Current Medications Albuterol (Albuterol 8 Gm Inhaler) 0 gm INH Q4H PRN PRN Reason: Shortness of Breath Sodium Chloride (Normal Saline) 1,000 mls @ 75 mls/hr IV ASDIRECTED [facility] Last Admin: 08/06/21 07:21 Dose: 75 mls/hr Documented by: Ceftriaxone Sodium 1 gm/ (Sodium Chloride) 50 mls @ 100 mls/hr IV Q24H [facility] Last Admin: 08/06/21 21:08 Dose: 100 mls/hr Documented by: Mometasone Furoate/Formoterol Fumar (Formoterol/Mometasone 200-5 Mcg 8.8 Gm Inhaler) 2 puff IH BIDRT [facility] Last Admin: 08/06/21 20:31 Dose: 2 puff Documented by: Prednisone (Prednisone 5 Mg Tab) 5 mg PO TID [facility] Stop: 08/07/21 21:01 Prednisone (Prednisone 5 Mg Tab) 5 mg PO BID [facility] Stop: 08/08/21 21:01 Prednisone (Prednisone 5 Mg Tab) 5 mg PO DAILY [facility] Stop: 08/09/21 09:01 Sodium Chloride (Sodium Chloride 0.9% 10 Ml Syringe) 10 ml FLUSH ASDIRECTED PRN PRN Reason: Keep Vein Open Discontinued Medications Furosemide (Furosemide 40 Mg/4 Ml Vial) 40 mg IVPUSH ONETIME ONE Stop: 08/04/21 20:04 Last Admin: 08/04/21 22:53 Dose: Not Given Documented by: Sodium Chloride (Normal Saline) 100 mls @ 3 mls/sec IV ASDIRECTED [facility] Last Admin: 08/04/21 20:29 Dose: 3 mls/sec Documented by: Iopamidol (Iopamidol 755 Mg/Ml 100 Ml Bottle) 100 ml IV . DIRECTED [facility] Last Admin: 08/04/21 20:28 Dose: 100 ml Documented by: Mometasone Furoate/Formoterol Fumar (Formoterol/Mometasone 200-5 Mcg 8.8 Gm Inhaler) 2 puff IH BID [facility] Last Admin: 08/04/21 23:30 Dose: 2 puff Documented by: Potassium Chloride (Potassium Chloride 10% 20 Meq/15 Ml Soln 15 Ml Ud Cup) 20 meq PO ONETIME ONE Stop: 08/04/21 19:27 Last Admin: 08/04/21 19:53 Dose: 20 meq Documented by: Prednisone (Prednisone 20 Mg Tab) 20 mg PO ONETIME ONE Stop: 08/04/21 21:37 Last Admin: 08/05/21 01:03 Dose: Not Given Documented by: Prednisone (Prednisone 20 Mg Tab) 30 mg PO NOW ONE Stop: 08/04/21 21:46 Last Admin: 08/04/21 23:36 Dose: 30 mg Documented by: Prednisone (Prednisone 5 Mg Tab) 5 mg PO TIDMEALS [facility] Stop: 08/05/21 17:01 Last Admin: 08/05/21 17:21 Dose: 5 mg Documented by: Prednisone (Prednisone 10 Mg Tab) 10 mg PO BEDTIME [facility] Stop: 08/05/21 21:01 Last Admin: 08/05/21 21:43 Dose: 10 mg Documented by: Prednisone (Prednisone 5 Mg Tab) 5 mg PO QIDPCANDBED [facility] Stop: 08/06/21 21:01 Last Admin: 08/06/21 20:35 Dose: 5 mg Documented by: Sodium Chloride (Sodium Chloride 0.9% 10 Ml Syringe) 10 ml FLUSH ASDIRECTED PRN PRN Reason: Keep Vein Open Sodium Chloride (Sodium Chloride 0.9% 10 Ml Sdv) 10 ml FLUSH ONETIME ONE Stop: 08/04/21 20:11 Last Admin: 08/04/21 20:29 Dose: 10 ml Documented by: - Exam General: Alert, Oriented HEENT: Pupils Equal Neck: Supple Lungs: Clear to Auscultation, Normal Respiratory Effort Cardiovascular: Regular Rate, Regular Rhythm GI/Abdominal Exam: Normal Bowel Sounds, Soft, Non-Tender, No Organomegaly, No Di stention, No Abnormal Bruit, No Mass, Pelvis Stable Back Exam: Normal Inspection Peripheral Pulses: 1+: Radial (L), Radial (R) Skin: Warm, Dry Psy/Mental Status: Anxious - Patient Data Result Diagrams: 08/05/21 08:22 08/05/21 08:22 Antony Results Last 24 hrs: Microbiology 08/04/21 18:51 Stool Culture - Preliminary Stool / Feces NORMAL ENTERIC RUBI 2 DAYS Shiga Toxin I - Final NEGATIVE FOR SHIGA TOXIN 1 Shiga Toxin II - Final NEGATIVE FOR SHIGA TOXIN 2 REFERENCE RANGE: NEGATIVE Sepsis Event Note - Evaluation Sepsis Screening Result: Possible Sepsis Risk - Focused Exam Vital Signs: Vital Signs Temp Pulse Resp BP Pulse Ox 08/06/21 18:50 97.0 F 79 16 129/65 95 08/06/21 14:49 97.3 F 80 16 116/61 95 08/06/21 11:55 97.5 F 67 16 127/62 95 - Problem List Review Problem List Initiated/Reviewed/Updated: Yes - My Orders Last 24 Hours: My Active Orders 08/06/21 08:14 Discontinue Telemetry Monitoring [Cardiac Monitoring Discontinue] [RC] Click to Edit 08/06/21 14:34 Convert IV to Peripheral Lock [Convert IV to Saline Lock] [OM.PC] Routine 08/07/21 05:11 BASIC METABOLIC PANEL,BMP [CHEM] Routine CBC WITH AUTO DIFF [HEME] Routine 08/07/21 09:00 predniSONE 5 mg PO TID 08/08/21 09:00 predniSONE 5 mg PO BID 08/09/21 09:00 predniSONE 5 mg PO DAILY - Plan Plan:: Assessment/Plan: Pneumonia with respiratory distress: Pulse ox 91 % CXR reveals ground glass infiltrates. Covid test neg so far. Will continue with Rocephin one gram q 24 hrs. WBC elevated 19.9 with a left shift. CXR showed no change but clinically much better. Blood work pending. #2. Diarrhea: c-dif pending. #3. History of HTN #4. BMI Elevated #5. History of C. Dif, MRSA, Toxoplasmosis, Depression, gout. She needs to be able to pass urine before returning to the home.
[2021-08-07] MEDS: Formoterol/Mometasone 200-5 MCG 8.8 GM Inhaler IH SCH ×2 (07:25→21:47)
[2021-08-07] MEDS: predniSONE 5 MG Tab PO SCH ×3 (08:12→21:47)
[2021-08-07] MEDS ORDERED: Vancomycin 2 GM in Sodium Chloride 0.9% 500 ML IV ONE (18:00)
[2021-08-07] MEDS ORDERED: Bacitracin Oint 28.35 GM Tube TOP PRN (18:09)
--- NOTE | 2021-08-07 23:01 | PCM.PN ---
- General Info Date of Service: 08/07/21 - Review of Systems General: Reports: Other (Lesion on upper right leg and right axilla) Pulmonary: Reports: No Symptoms Cardiovascular: Reports: No Symptoms Gastrointestinal: Reports: No Symptoms Genitourinary: Reports: No Symptoms Musculoskeletal: Reports: No Symptoms Skin: Reports: No Symptoms Neurological: Reports: No Symptoms Psychiatric: Reports: Anxiety - Patient Data Vitals - Most Recent: Last Vital Signs Temp 96.5 F L 08/07/21 20:39 Pulse 80 08/07/21 20:39 Resp 16 08/07/21 20:39 BP 143/83 H 08/07/21 20:39 Pulse Ox 97 08/07/21 20:39 Weight - Most Recent: 226 lb 0.004 oz I&O - Last 24 Hours: Intake & Output 08/07/21 08/07/21 08/07/21 06:59 14:59 22:59 Intake Total 300 880 700 Balance 300 880 700 Lab Results Last 24 Hours: Laboratory Results - last 24 hr 08/07/21 08/07/21 Range/Units 05:54 05:54 WBC 20.3 H (4.5-11.0) K/uL RBC 4.28 (3.30-5.50) M/uL Hgb 12.6 (12.0-15.0) g/dL Hct 38.9 (36.0-48.0) % MCV 91 (80-98) fL MCH 29 (27-31) pg MCHC 32 (32-36) % Plt Count 400 (150-400) K/uL Add Manual Diff Yes Neutrophils % (Manual) 73 H (36-66) % Lymphocytes % (Manual) 18 L (24-44) % Monocytes % (Manual) 8 H (2-6) % Eosinophils % (Manual) 1 L (2-4) % Sodium 140 (140-148) mmol/L Potassium 3.7 (3.6-5.2) mmol/L Chloride 104 (100-108) mmol/L Carbon Dioxide 25 (21-32) mmol/L Anion Gap 11.0 (5.0-14.0) mmol/L BUN 11 (7-18) mg/dL Creatinine 0.6 (0.6-1.0) mg/dL Est Cr Clr Drug Dosing 86.58 mL/min Estimated GFR (MDRD) > 60 (>60) Glucose 98 (74-106) mg/dL Calcium 8.6 (8.5-10.1) mg/dL Antony Results Last 24 Hours: Microbiology 08/07/21 18:08 Gram Stain - Final Groin, Right 08/07/21 18:07 Gram Stain - Final Chest - Right 08/04/21 18:51 Stool Culture - Final Stool / Feces NORMAL ENTERIC RUBI. NO SALMONELLA, SHIGELLA, CAMPYLOBACTER OR E.COLI O157 ISOLATED. Shiga Toxin I - Final NEGATIVE FOR SHIGA TOXIN 1 Shiga Toxin II - Final NEGATIVE FOR SHIGA TOXIN 2 REFERENCE RANGE: NEGATIVE Med Orders - Current: Current Medications Albuterol (Albuterol 8 Gm Inhaler) 0 gm INH Q4H PRN PRN Reason: Shortness of Breath Bacitracin (Bacitracin Oint 28.35 Gm Tube) 0 gm TOP TID PRN PRN Reason: Wound Care Sodium Chloride (Normal Saline) 1,000 mls @ 75 mls/hr IV ASDIRECTED [facility] Last Admin: 08/06/21 07:21 Dose: 75 mls/hr Documented by: Vancomycin HCl 1.5 gm/ Sodium (Chloride) 250 mls @ 166.667 mls/hr IV Q12H [facility] Mometasone Furoate/Formoterol Fumar (Formoterol/Mometasone 200-5 Mcg 8.8 Gm Inhaler) 2 puff IH BIDRT [facility] Last Admin: 08/07/21 21:47 Dose: 2 puff Documented by: Prednisone (Prednisone 5 Mg Tab) 5 mg PO BID [facility] Stop: 08/08/21 21:01 Prednisone (Prednisone 5 Mg Tab) 5 mg PO DAILY [facility] Stop: 08/09/21 09:01 Sodium Chloride (Sodium Chloride 0.9% 10 Ml Syringe) 10 ml FLUSH ASDIRECTED PRN PRN Reason: Keep Vein Open Discontinued Medications Furosemide (Furosemide 40 Mg/4 Ml Vial) 40 mg IVPUSH ONETIME ONE Stop: 08/04/21 20:04 Last Admin: 08/04/21 22:53 Dose: Not Given Documented by: Sodium Chloride (Normal Saline) 100 mls @ 3 mls/sec IV ASDIRECTED [facility] [place] Last Admin: 08/04/21 20:29 Dose: 3 mls/sec Documented by: Ceftriaxone Sodium 1 gm/ (Sodium Chloride) 50 mls @ 100 mls/hr IV Q24H [facility] [place] Last Admin: 08/06/21 21:08 Dose: 100 mls/hr Documented by: Vancomycin HCl 2 gm/ Sodium (Chloride) 500 mls @ 250 mls/hr IV ONETIME ONE Stop: 08/07/21 19:59 Last Admin: 08/07/21 17:53 Dose: 250 mls/hr Documented by: Iopamidol (Iopamidol 755 Mg/Ml 100 Ml Bottle) 100 ml IV . DIRECTED [facility] [place] Last Admin: 08/04/21 20:28 Dose: 100 ml Documented by: Mometasone Furoate/Formoterol Fumar (Formoterol/Mometasone 200-5 Mcg 8.8 Gm Inhaler) 2 puff IH BID [facility] [place] Last Admin: 08/04/21 23:30 Dose: 2 puff Documented by: Potassium Chloride (Potassium Chloride 10% 20 Meq/15 Ml Soln 15 Ml Ud Cup) 20 meq PO ONETIME ONE Stop: 08/04/21 19:27 Last Admin: 08/04/21 19:53 Dose: 20 meq Documented by: Prednisone (Prednisone 20 Mg Tab) 20 mg PO ONETIME ONE Stop: 08/04/21 21:37 Last Admin: 08/05/21 01:03 Dose: Not Given Documented by: Prednisone (Prednisone 20 Mg Tab) 30 mg PO NOW ONE Stop: 08/04/21 21:46 Last Admin: 08/04/21 23:36 Dose: 30 mg Documented by: Prednisone (Prednisone 5 Mg Tab) 5 mg PO TIDMEALS [facility] Stop: 08/05/21 17:01 Last Admin: 08/05/21 17:21 Dose: 5 mg Documented by: Prednisone (Prednisone 10 Mg Tab) 10 mg PO BEDTIME [facility] Stop: 08/05/21 21:01 Last Admin: 08/05/21 21:43 Dose: 10 mg Documented by: Prednisone (Prednisone 5 Mg Tab) 5 mg PO QIDPCANDBED [facility] Stop: 08/06/21 21:01 Last Admin: 08/06/21 20:35 Dose: 5 mg Documented by: Prednisone (Prednisone 5 Mg Tab) 5 mg PO TID [facility] [place] Stop: 08/07/21 21:01 Last Admin: 08/07/21 21:47 Dose: 5 mg Documented by: Sodium Chloride (Sodium Chloride 0.9% 10 Ml Syringe) 10 ml FLUSH ASDIRECTED PRN PRN Reason: Keep Vein Open Sodium Chloride (Sodium Chloride 0.9% 10 Ml Sdv) 10 ml FLUSH ONETIME ONE Stop: 08/04/21 20:11 Last Admin: 08/04/21 20:29 Dose: 10 ml Documented by: - Exam General: Alert, Oriented HEENT: Pupils Equal, Pupils Reactive, EOMI, Mucous Membr. Moist/[place] Neck: Supple Lungs: Clear to Auscultation, Normal Respiratory Effort Cardiovascular: Regular Rate, Regular Rhythm GI/Abdominal Exam: Normal Bowel Sounds, Soft, Non-Tender, No Organomegaly, No Distention, No Abnormal Bruit, No Mass, Pelvis Stable Extremities: Other (lesion 1.5 cm lesion) Peripheral Pulses: 0: Posterior Tibial (L), 1+: Radial (L), Radial (R) Skin: Warm, Dry, Intact, Other Psy/Mental Status: Alert - Patient Data Lab Results Last 24 hrs: Laboratory Results - last 24 hr 08/07/21 08/07/21 Range/Units 05:54 05:54 WBC 20.3 H (4.5-11.0) K/uL RBC 4.28 (3.30-5.50) M/uL Hgb 12.6 (12.0-15.0) g/dL Hct 38.9 (36.0-48.0) % MCV 91 (80-98) fL MCH 29 (27-31) pg MCHC 32 (32-36) % Plt Count 400 (150-400) K/uL Add Manual Diff Yes Neutrophils % (Manual) 73 H (36-66) % Lymphocytes % (Manual) 18 L (24-44) % Monocytes % (Manual) 8 H (2-6) % Eosinophils % (Manual) 1 L (2-4) % Sodium 140 (140-148) mmol/L Potassium 3.7 (3.6-5.2) mmol/L Chloride 104 (100-108) mmol/L Carbon Dioxide 25 (21-32) mmol/L Anion Gap 11.0 (5.0-14.0) mmol/L BUN 11 (7-18) mg/dL Creatinine 0.6 (0.6-1.0) mg/dL Est Cr Clr Drug Dosing 86.58 mL/min Estimated GFR (MDRD) > 60 (>60) Glucose 98 (74-106) mg/dL Calcium 8.6 (8.5-10.1) mg/dL Result Diagrams: 08/08/21 06:04 08/08/21 06:04 Antony Results Last 24 hrs: Microbiology 08/07/21 18:08 Gram Stain - Final Groin, Right 08/07/21 18:07 Gram Stain - Final Chest - Right 08/04/21 18:51 Stool Culture - Final Stool / Feces NORMAL ENTERIC RUBI. NO SALMONELLA, SHIGELLA, CAMPYLOBACTER OR E.COLI O157 ISOLATED. Shiga Toxin I - Final NEGATIVE FOR SHIGA TOXIN 1 Shiga Toxin II - Final NEGATIVE FOR SHIGA TOXIN 2 REFERENCE RANGE: NEGATIVE Sepsis Event Note - Evaluation Sepsis Screening Result: Possible Sepsis Risk - Focused Exam Vital Signs: Vital Signs Temp Pulse Resp BP Pulse Ox 08/07/21 20:39 96.5 F L 80 16 143/83 H 97 08/07/21 15:17 96.1 F L 75 14 127/74 97 08/07/21 11:37 96.9 F 83 14 118/74 96 - Problem List Review Problem List Initiated/Reviewed/Updated: Yes - My Orders Last 24 Hours: My Active Orders 08/07/21 18:07 CULTURE WOUND + SMEAR [RM] Routine 08/07/21 18:08 CULTURE WOUND + SMEAR [RM] Routine 08/07/21 18:09 Bacitracin [Bacitracin Oint] See Dose Instructions TOP TID PRN 08/08/21 05:11 CBC WITH AUTO DIFF [HEME] Routine COMPREHENSIVE METABOLIC PN,CMP [CHEM] Routine 08/08/21 06:00 Vancomycin 1.5 gm Sodium Chloride 0.9% [Normal Saline] 250 ml IV Q12H 08/08/21 09:00 predniSONE 5 mg PO BID 08/09/21 09:00 predniSONE 5 mg PO DAILY - Plan Plan:: Assessment/Plan: Pneumonia with respiratory distress: Pulse ox 91 % CXR reveals ground glass infiltrates. Covid test neg so far. WBC elevated 20,000 from 16,000 2 days ago. Because of the elevation of white count of to 20,000 I feel it's not pneumonia but the lesions as discussed below. #2. Diarrhea: c-dif pending. #3. History of HTN #4. BMI Elevated #5. History of C. Dif, MRSA, Toxoplasmosis, Depression, gout. #6. Furuncle: I opened the furuncle on the right axilla and upper right leg and did culture of both. I started her on vancomycin as I feel this is most likely MRSA. She needs to be able to pass urine before returning to the home.
[2021-08-08] MEDS: Sodium Chloride 0.9% 1,000 ML IV SCH (01:20)
[2021-08-08 07:11] VITALS: BP 149/83
[2021-08-08] MEDS: Formoterol/Mometasone 200-5 MCG 8.8 GM Inhaler IH SCH (07:11)
[2021-08-08] MEDS ORDERED: predniSONE 5 MG Tab PO SCH (09:00)
[2021-08-08 18:19] VITALS: PULSE 88
--- NOTE | 2021-08-08 22:43 | PCM.PN ---
- General Info Date of Service: 08/08/21 Admission Dx/Problem (Free Text): She insists on going home today and said she would come back for vancomycin twice daily. Functional Status: Reports: Pain Controlled - Review of Systems General: Reports: Weakness HEENT: Reports: No Symptoms Pulmonary: Reports: Shortness of Breath Cardiovascular: Reports: No Symptoms Gastrointestinal: Reports: No Symptoms Genitourinary: Reports: No Symptoms Musculoskeletal: Reports: No Symptoms Skin: Reports: Other (furuncle right upper leg and right axilla) Neurological: Reports: No Symptoms Psychiatric: Reports: Anxiety - Patient Data Vitals - Most Recent: Last Vital Signs Temp 96.4 F L 08/08/21 18:19 Pulse 88 08/08/21 18:19 Resp 16 08/08/21 18:19 BP 149/83 H 08/08/21 07:07 Pulse Ox 95 08/08/21 18:19 Weight - Most Recent: 226 lb 0.004 oz I&O - Last 24 Hours: Intake & Output 08/08/21 08/08/21 08/08/21 06:59 14:59 22:59 Intake Total 973 300 Balance 973 300 Lab Results Last 24 Hours: Laboratory Results - last 24 hr 08/08/21 08/08/21 Range/Units 06:04 06:04 WBC 18.5 H (4.5-11.0) K/uL RBC 4.07 (3.30-5.50) M/uL Hgb 12.1 (12.0-15.0) g/dL Hct 37.0 (36.0-48.0) % MCV 91 (80-98) fL MCH 30 (27-31) pg MCHC 33 (32-36) % Plt Count 364 (150-400) K/uL Add Manual Diff Yes Neutrophils % (Manual) 63 (36-66) % Lymphocytes % (Manual) 27 (24-44) % Monocytes % (Manual) 6 (2-6) % Eosinophils % (Manual) 4 (2-4) % Sodium 139 L (140-148) mmol/L Potassium 3.5 L (3.6-5.2) mmol/L Chloride 105 (100-108) mmol/L Carbon Dioxide 26 (21-32) mmol/L Anion Gap 11.5 (5.0-14.0) mmol/L BUN 8 (7-18) mg/dL Creatinine 0.5 L (0.6-1.0) mg/dL Est Cr Clr Drug Dosing 103.89 mL/min Estimated GFR (MDRD) > 60 (>60) Glucose 98 (74-106) mg/dL Calcium 8.3 L (8.5-10.1) mg/dL Total Bilirubin 0.2 (0.2-1.0) mg/dL AST 9 L (15-37) U/L ALT 39 (12-78) U/L Alkaline Phosphatase 72 (46-116) U/L Total Protein 5.7 L (6.4-8.2) g/dL Albumin 2.2 L (3.4-5.0) g/dL Globulin 3.5 (2.3-3.5) g/dL Albumin/Globulin Ratio 0.6 L (1.2-2.2) Antony Results Last 24 Hours: Microbiology 08/07/21 18:07 Gram Stain - Final Chest - Right Wound Culture - Preliminary 08/07/21 18:08 Gram Stain - Final Groin, Right Med Orders - Current: Current Medications Discontinued Medications Albuterol (Albuterol 8 Gm Inhaler) 0 gm INH Q4H PRN PRN Reason: Shortness of Breath Bacitracin (Bacitracin Oint 28.35 Gm Tube) 0 gm TOP TID PRN PRN Reason: Wound Care Last Admin: 08/08/21 07:11 Dose: 1 applic Documented by: Furosemide (Furosemide 40 Mg/4 Ml Vial) 40 mg IVPUSH ONETIME ONE Stop: 08/04/21 20:04 Last Admin: 08/04/21 22:53 Dose: Not Given Documented by: Sodium Chloride (Normal Saline) 100 mls @ 3 mls/sec IV ASDIRECTED [facility] Last Admin: 08/04/21 20:29 Dose: 3 mls/sec Documented by: Sodium Chloride (Normal Saline) 1,000 mls @ 75 mls/hr IV ASDIRECTED [facility] Last Admin: 08/08/21 01:20 Dose: 75 mls/hr Documented by: Ceftriaxone Sodium 1 gm/ (Sodium Chloride) 50 mls @ 100 mls/hr IV Q24H [facility] Last Admin: 08/06/21 21:08 Dose: 100 mls/hr Documented by: Vancomycin HCl 2 gm/ Sodium (Chloride) 500 mls @ 250 mls/hr IV ONETIME ONE Stop: 08/07/21 19:59 Last Admin: 08/07/21 17:53 Dose: 250 mls/hr Documented by: Vancomycin HCl 1.5 gm/ Sodium (Chloride) 250 mls @ 166.667 mls/hr IV Q12H [facility] Last Admin: 08/08/21 05:14 Dose: 166.667 mls/hr Documented by: Iopamidol (Iopamidol 755 Mg/Ml 100 Ml Bottle) 100 ml IV . DIRECTED [facility] Last Admin: 08/04/21 20:28 Dose: 100 ml Documented by: Mometasone Furoate/Formoterol Fumar (Formoterol/Mometasone 200-5 Mcg 8.8 Gm Inhaler) 2 puff IH BID [facility] Last Admin: 08/04/21 23:30 Dose: 2 puff Documented by: Mometasone Furoate/Formoterol Fumar (Formoterol/Mometasone 200-5 Mcg 8.8 Gm Inhaler) 2 puff IH BIDRT [facility] Last Admin: 08/08/21 07:11 Dose: 2 puff Documented by: Potassium Chloride (Potassium Chloride 10% 20 Meq/15 Ml Soln 15 Ml Ud Cup) 20 meq PO ONETIME ONE Stop: 08/04/21 19:27 Last Admin: 08/04/21 19:53 Dose: 20 meq Documented by: Prednisone (Prednisone 20 Mg Tab) 20 mg PO ONETIME ONE Stop: 08/04/21 21:37 Last Admin: 08/05/21 01:03 Dose: Not Given Documented by: Prednisone (Prednisone 20 Mg Tab) 30 mg PO NOW ONE Stop: 08/04/21 21:46 Last Admin: 08/04/21 23:36 Dose: 30 mg Documented by: Prednisone (Prednisone 5 Mg Tab) 5 mg PO TIDMEALS [facility] Stop: 08/05/21 17:01 Last Admin: 08/05/21 17:21 Dose: 5 mg Documented by: Prednisone (Prednisone 10 Mg Tab) 10 mg PO BEDTIME [facility] Stop: 08/05/21 21:01 Last Admin: 08/05/21 21:43 Dose: 10 mg Documented by: Prednisone (Prednisone 5 Mg Tab) 5 mg PO QIDPCANDBED [facility] Stop: 08/06/21 21:01 Last Admin: 08/06/21 20:35 Dose: 5 mg Documented by: Prednisone (Prednisone 5 Mg Tab) 5 mg PO TID [facility] Stop: 08/07/21 21:01 Last Admin: 08/07/21 21:47 Dose: 5 mg Documented by: Prednisone (Prednisone 5 Mg Tab) 5 mg PO BID [facility] Stop: 08/08/21 21:01 Last Admin: 08/08/21 09:44 Dose: 5 mg Documented by: Prednisone (Prednisone 5 Mg Tab) 5 mg PO DAILY [facility] Stop: 08/09/21 09:01 Sodium Chloride (Sodium Chloride 0.9% 10 Ml Syringe) 10 ml FLUSH ASDIRECTED PRN PRN Reason: Keep Vein Open Sodium Chloride (Sodium Chloride 0.9% 10 Ml Sdv) 10 ml FLUSH ONETIME ONE Stop: 08/04/21 20:11 Last Admin: 08/04/21 20:29 Dose: 10 ml Documented by: Sodium Chloride (Sodium Chloride 0.9% 10 Ml Syringe) 10 ml FLUSH ASDIRECTED PRN PRN Reason: Keep Vein Open - Exam General: Alert, Oriented, Cooperative HEENT: Pupils Equal, Pupils Reactive, EOMI, Mucous Membr. Moist/Diagonal Neck: Supple Lungs: Clear to Auscultation, Normal Respiratory Effort GI/Abdominal Exam: Normal Bowel Sounds Back Exam: Normal Inspection, Full Range of Motion Extremities: Other (lesion upper leg small open subcutaneous lesion and a painful area in the right axilla.) - Patient Data Lab Results Last 24 hrs: Laboratory Results - last 24 hr 08/08/21 08/08/21 Range/Units 06:04 06:04 WBC 18.5 H (4.5-11.0) K/uL RBC 4.07 (3.30-5.50) M/uL Hgb 12.1 (12.0-15.0) g/dL Hct 37.0 (36.0-48.0) % MCV 91 (80-98) fL MCH 30 (27-31) pg MCHC 33 (32-36) % Plt Count 364 (150-400) K/uL Add Manual Diff Yes Neutrophils % (Manual) 63 (36-66) % Lymphocytes % (Manual) 27 (24-44) % Monocytes % (Manual) 6 (2-6) % Eosinophils % (Manual) 4 (2-4) % Sodium 139 L (140-148) mmol/L Potassium 3.5 L (3.6-5.2) mmol/L Chloride 105 (100-108) mmol/L Carbon Dioxide 26 (21-32) mmol/L Anion Gap 11.5 (5.0-14.0) mmol/L BUN 8 (7-18) mg/dL Creatinine 0.5 L (0.6-1.0) mg/dL Est Cr Clr Drug Dosing 103.89 mL/min Estimated GFR (MDRD) > 60 (>60) Glucose 98 (74-106) mg/dL Calcium 8.3 L (8.5-10.1) mg/dL Total Bilirubin 0.2 (0.2-1.0) mg/dL AST 9 L (15-37) U/L ALT 39 (12-78) U/L Alkaline Phosphatase 72 (46-116) U/L Total Protein 5.7 L (6.4-8.2) g/dL Albumin 2.2 L (3.4-5.0) g/dL Globulin 3.5 (2.3-3.5) g/dL Albumin/Globulin Ratio 0.6 L (1.2-2.2) Result Diagrams: 08/08/21 06:04 08/08/21 06:04 Antony Results Last 24 hrs: Microbiology 08/07/21 18:07 Gram Stain - Final Chest - Right Wound Culture - Preliminary 08/07/21 18:08 Gram Stain - Final Groin, Right Sepsis Event Note - Evaluation Sepsis Screening Result: Possible Sepsis Risk - Focused Exam Vital Signs: Vital Signs Temp Pulse Resp Pulse Ox 08/08/21 18:19 96.4 F L 88 16 95 - Problem List Review Problem List Initiated/Reviewed/Updated: Yes - Plan Plan:: Assessment/Plan: Pneumonia with respiratory distress: Pulse ox 95 % CXR reveals ground glass infiltrates. Covid test neg so far. WBC elevated 18,000 from 20,000 yesterday. Because of the elevation of white count of to 18,000 I feel it's not pneumonia but the lesions as discussed below. She has agreed to come in twice a day for vancomycin injection and a PICC line will be put in today as she is insistent on going home today. #2. Diarrhea: c-dif negative #3. History of HTN #4. BMI Elevated #5. History of C. Dif, MRSA, Toxoplasmosis, Depression, gout. #6. Furuncle: I opened the furuncle on the right axilla and upper right leg and did culture of both. Identification is still pending but I feel it is most likely staph or MRSA. She'll come in for vancomycin twice daily and will be going home today.
--- NOTE | 2021-08-08 22:49 | PCM.DCSUM1 ---
Discharge Summary - Hospital Course Brief History: Begun with shortness of breath 4 days ago before admission with diarrhea brown in color and dizzy when she moves. Never had Dx with Covid in the past. She was treated with Doxycycline for 10 days due to MRSA. She had cortisone injection of both knees 6 days before admission. Diagnosis: Stroke: No - Discharge Data Discharge Date: 08/08/21 Discharge Disposition: Home, Self-Care 01 Condition: Fair - Referral to Home Health Primary Care Physician: Parker Peter Sr, MD - Patient Summary/Data Hospital Course: She was given Rocephin initially IV as the x-ray did show evidence of pneumonia bilaterally and concerned about possible coronavirus. Tests came out negative e marii though she was significantly short of breath. Follow-up x-ray showed no changes after given Rocephin. Her white count went up to 20,000 and the Rocephin did not improve the white count. I then changed her to vancomycin and there was a decrease in the white count. She did have lesions on the axilla as well as upper right leg and cultures were done which are pending at the time of discharge. She has agreed to come in for vancomycin twice daily for up to 7 days. She insisted on going home and not staying another day. Her respiratory condition did become asymptomatic while in the hospital. - Patient Instructions Diet: Regular Diet as Tolerated Activity: As Tolerated Notify Provider of: Fever, Increased Pain - Discharge Plan *PRESCRIPTION DRUG MONITORING PROGRAM REVIEWED*: No *COPY OF PRESCRIPTION DRUG MONITORING REPORT IN PATIENT ALLYSSA: No Home Medications: Home Meds Fluticasone Propion/Salmeterol [Advair 250-50 Diskus] 1 puff IH Q12H 07/01/17 [History] Albuterol Sulfate [Proair Hfa] 2 puff IH Q4H PRN 07/03/17 [History] Patient Handouts: Chronic Obstructive Pulmonary Disease Exacerbation, [id number] Referrals: Parker Peter Sr, MD [Primary Care Provider] - 08/14/21 11:30 am - Discharge Summary/Plan Comment DC Time >30 min.: Yes Total # of Minutes for Discharge Time: 30 Discharge Summary/Plan Comment: Assessment/Plan: Pneumonia with respiratory distress: Pulse ox 95 % CXR reveals ground glass infiltrates. Covid test neg so far. WBC elevated 18,000 from 20,000 yesterday. Because of the elevation of white count of to 18,000 I feel it's not pneumonia but the lesions as discussed below. She has agreed to come in twice a day for vancomycin injection and a PICC line will be put in today as she is insistent on going home today. #2. Diarrhea: c-dif negative #3. History of HTN #4. BMI Elevated #5. History of C. Dif, MRSA, Toxoplasmosis, Depression, gout. #6. Furuncle: I opened the furuncle on the right axilla and upper right leg and did culture of both. Identification is still pending but I feel it is most likely staph or MRSA. She'll come in for vancomycin twice daily and will be going home today. - Review of Systems General: Reports: Weakness HEENT: Reports: No Symptoms Pulmonary: Reports: Shortness of Breath Cardiovascular: Reports: No Symptoms Gastrointestinal: Reports: No Symptoms Genitourinary: Reports: No Symptoms Musculoskeletal: Reports: No Symptoms Skin: Reports: Other (furuncles of the right leg and axilla culture is pending) Neurological: Reports: No Symptoms Psychiatric: Reports: Depression, Anxiety - Patient Data Vitals - Most Recent: Last Vital Signs Temp 96.4 F L 08/08/21 18:19 Pulse 88 08/08/21 18:19 Resp 16 08/08/21 18:19 BP 149/83 H 08/08/21 07:07 Pulse Ox 95 08/08/21 18:19 Weight - Most Recent: 226 lb 0.004 oz I&O - Last 24 hours: Intake & Output 08/08/21 08/08/21 08/08/21 06:59 14:59 22:59 Intake Total 973 300 Balance 973 300 Lab Results - Last 24 hrs: Laboratory Results - last 24 hr 08/08/21 08/08/21 Range/Units 06:04 06:04 WBC 18.5 H (4.5-11.0) K/uL RBC 4.07 (3.30-5.50) M/uL Hgb 12.1 (12.0-15.0) g/dL Hct 37.0 (36.0-48.0) % MCV 91 (80-98) fL MCH 30 (27-31) pg MCHC 33 (32-36) % Plt Count 364 (150-400) K/uL Add Manual Diff Yes Neutrophils % (Manual) 63 (36-66) % Lymphocytes % (Manual) 27 (24-44) % Monocytes % (Manual) 6 (2-6) % Eosinophils % (Manual) 4 (2-4) % Sodium 139 L (140-148) mmol/L Potassium 3.5 L (3.6-5.2) mmol/L Chloride 105 (100-108) mmol/L Carbon Dioxide 26 (21-32) mmol/L Anion Gap 11.5 (5.0-14.0) mmol/L BUN 8 (7-18) mg/dL Creatinine 0.5 L (0.6-1.0) mg/dL Est Cr Clr Drug Dosing 103.89 mL/min Estimated GFR (MDRD) > 60 (>60) Glucose 98 (74-106) mg/dL Calcium 8.3 L (8.5-10.1) mg/dL Total Bilirubin 0.2 (0.2-1.0) mg/dL AST 9 L (15-37) U/L ALT 39 (12-78) U/L Alkaline Phosphatase 72 (46-116) U/L Total Protein 5.7 L (6.4-8.2) g/dL Albumin 2.2 L (3.4-5.0) g/dL Globulin 3.5 (2.3-3.5) g/dL Albumin/Globulin Ratio 0.6 L (1.2-2.2) KAY Results - Last 24 hrs: Microbiology 08/07/21 18:07 Gram Stain - Final Chest - Right Wound Culture - Preliminary 08/07/21 18:08 Gram Stain - Final Groin, Right Med Orders - Current: Current Medications Discontinued Medications Albuterol (Albuterol 8 Gm Inhaler) 0 gm INH Q4H PRN PRN Reason: Shortness of Breath Bacitracin (Bacitracin Oint 28.35 Gm Tube) 0 gm TOP TID PRN PRN Reason: Wound Care Last Admin: 08/08/21 07:11 Dose: 1 applic Documented by: Furosemide (Furosemide 40 Mg/4 Ml Vial) 40 mg IVPUSH ONETIME ONE Stop: 08/04/21 20:04 Last Admin: 08/04/21 22:53 Dose: Not Given Documented by: Sodium Chloride (Normal Saline) 100 mls @ 3 mls/sec IV ASDIRECTED [facility] Last Admin: 08/04/21 20:29 Dose: 3 mls/sec Documented by: Sodium Chloride (Normal Saline) 1,000 mls @ 75 mls/hr IV ASDIRECTED [facility] Last Admin: 08/08/21 01:20 Dose: 75 mls/hr Documented by: Ceftriaxone Sodium 1 gm/ (Sodium Chloride) 50 mls @ 100 mls/hr IV Q24H [facility] Last Admin: 08/06/21 21:08 Dose: 100 mls/hr Documented by: Vancomycin HCl 2 gm/ Sodium (Chloride) 500 mls @ 250 mls/hr IV ONETIME ONE Stop: 08/07/21 19:59 Last Admin: 08/07/21 17:53 Dose: 250 mls/hr Documented by: Vancomycin HCl 1.5 gm/ Sodium (Chloride) 250 mls @ 166.667 mls/hr IV Q12H [facility] Last Admin: 08/08/21 05:14 Dose: 166.667 mls/hr Documented by: Iopamidol (Iopamidol 755 Mg/Ml 100 Ml Bottle) 100 ml IV . DIRECTED [facility] Last Admin: 08/04/21 20:28 Dose: 100 ml Documented by: Mometasone Furoate/Formoterol Fumar (Formoterol/Mometasone 200-5 Mcg 8.8 Gm Inhaler) 2 puff IH BID [facility] Last Admin: 08/04/21 23:30 Dose: 2 puff Documented by: Mometasone Furoate/Formoterol Fumar (Formoterol/Mometasone 200-5 Mcg 8.8 Gm Inhaler) [facility] Admin: 08/08/21 07:11 Dose: 2 puff Documented by: Potassium Chloride (Potassium Chloride 10% 20 Meq/15 Ml Soln 15 Ml Ud Cup) 20 meq PO ONETIME ONE Stop: 08/04/21 19:27 Last Admin: 08/04/21 19:53 Dose: 20 meq Documented by: Prednisone (Prednisone 20 Mg Tab) 20 mg PO ONETIME ONE Stop: 08/04/21 21:37 Last Admin: 08/05/21 01:03 Dose: Not Given Documented by: Prednisone (Prednisone 20 Mg Tab) 30 mg PO NOW ONE Stop: 08/04/21 21:46 Last Admin: 08/04/21 23:36 Dose: 30 mg Documented by: Prednisone (Prednisone 5 Mg Tab) 5 mg PO TIDMEALS GRZEGORZ Stop: 08/05/21 17:01 Last Admin: 08/05/21 17:21 Dose: 5 mg Documented by: Prednisone (Prednisone 10 Mg Tab) 10 mg PO BEDTIME GRZEGORZ Stop: 08/05/21 21:01 Last Admin: 08/05/21 21:43 Dose: 10 mg Documented by: Prednisone (Prednisone 5 Mg Tab) 5 mg PO QIDPCANDBED GRZEGORZ Stop: 08/06/21 21:01 Last Admin: 08/06/21 20:35 Dose: 5 mg Documented by: Prednisone (Prednisone 5 Mg Tab) 5 mg PO TID GRZEGORZ Stop: 08/07/21 21:01 Last Admin: 08/07/21 21:47 Dose: 5 mg Documented by: Prednisone (Prednisone 5 Mg Tab) 5 mg PO BID GRZEGORZ Stop: 08/08/21 21:01 Last Admin: 08/08/21 09:44 Dose: 5 mg Documented by: Prednisone (Prednisone 5 Mg Tab) 5 mg PO DAILY GRZEGORZ Stop: 08/09/21 09:01 Sodium Chloride (Sodium Chloride 0.9% 10 Ml Syringe) 10 ml FLUSH ASDIRECTED PRN PRN Reason: Keep Vein Open Sodium Chloride (Sodium Chloride 0.9% 10 Ml Sdv) 10 ml FLUSH ONETIME ONE Stop: 08/04/21 20:11 Last Admin: 08/04/21 20:29 Dose: 10 ml Documented by: Sodium Chloride (Sodium Chloride 0.9% 10 Ml Syringe) 10 ml FLUSH ASDIRECTED PRN PRN Reason: Keep Vein Open - Exam General: Reports: Alert, Oriented Neck: Reports: Supple Lungs: Reports: Clear to Auscultation, Normal Respiratory Effort Cardiovascular: Reports: Regular Rate, Regular Rhythm GI/Abdominal Exam: Normal Bowel Sounds, Soft, Non-Tender, No Organomegaly, No Distention, No Abnormal Bruit, No Mass, Pelvis Stable Back Exam: Reports: Normal Inspection, Full Range of Motion Skin: Reports: Other (furuncles upper right leg and right axilla) Wound/Incisions: Reports: Healing Well Neurological: Reports: No New Focal Deficit, Normal Gait Psy/Mental Status: Reports: Alert
[2021-08-09] MEDS ORDERED: predniSONE 5 MG Tab PO SCH (09:00)
== END 2021-08-08 10:20 | disposition home or self-care (01) | DRG 194 ==
LOC: JP.ED 18:02 → JP.MS 21:26
PROVIDERS: ADMIT Internal Medicine; ATTEND Internal Medicine
DX: J18.9 Pneumonia, unspecified organism (principal); B58.9 Toxoplasmosis, unspecified; J44.0 Chronic obstructive pulmonary disease with (acute) lower respiratory infection; Z20.822 Contact with and (suspected) exposure to COVID-19; R19.7 Diarrhea, unspecified; F32.9 Major depressive disorder, single episode, unspecified; M10.9 Gout, unspecified; I10 Essential (primary) hypertension; E87.6 Hypokalemia; L02.421 Furuncle of right axilla; B95.62 Methicillin resistant Staphylococcus aureus infection as the cause of diseases classified elsewhere; R06.03 Acute respiratory distress; H54.7 Unspecified visual loss; M19.90 Unspecified osteoarthritis, unspecified site; F17.200 Nicotine dependence, unspecified, uncomplicated; Z88.2 Allergy status to sulfonamides; Z79.51 Long term (current) use of inhaled steroids; Z90.710 Acquired absence of both cervix and uterus; Z98.890 Other specified postprocedural states
CPT/HCPCS: 36415; 71045; 71045-26; 71046; 71046-26; 71275; 80048; 80053; 83880; 84145; 84484; 85025; 85379; 87046; 87070; 87077; 87186; 87205; 87899; 93005; 94640; 99285-25; A9270-GY; J0696; J3370; J7030; J7040; J7050; J7512; Q9967; U0002

== ENCOUNTER 2021-09-09 09:14 | Day surgery (SDC) | payer MEDICAID ==
[2021-09-09] MEDS ORDERED: Acetaminophen 500 MG Tab PO ONE (09:45)
[2021-09-09] MEDS ORDERED: Dextrose 5%-Lactated Ringers 1,000 ML IV SCH (10:00)
[2021-09-09] MEDS ORDERED: Linezolid 600 MG in Premix Bag 1 BAG IV ONE (11:00)
[2021-09-09] MEDS ORDERED: Propofol 200 MG/20 ML SDV ONE ×2 (12:06→13:21)
[2021-09-09] MEDS ORDERED: fentaNYL 100 MCG/2 ML SDV ONE (12:07)
[2021-09-09] MEDS ORDERED: Midazolam 1 MG/ML 2 ML SDV ONE (12:07)
[2021-09-09] MEDS ORDERED: Bupivacaine 0.5% 50 ML MDV ONE (12:23)
[2021-09-09] MEDS ORDERED: Lidocaine 1% with EPINEPHrine 1:100,000 50 ML MDV ONE (12:24)
[2021-09-09 15:15] VITALS: BP 161/73; PULSE 95
--- NOTE | 2021-09-10 14:14 | OR ---
DATE OF PROCEDURE: 09/09/2021 SURGEON: Pete Barboza MD PREOPERATIVE DIAGNOSIS: Indication for central venous access. POSTOPERATIVE DIAGNOSIS: Indication for central venous access. PROCEDURE PERFORMED: Placement of double-lumen Smith catheter via right subclavian vein approach (82323). ANESTHESIA: Local plus IV sedation. INDICATION FOR PROCEDURE: This is a 56-year-old female presenting with extensive cellulitis in the left arm and flank area. In the past, she has been MRSA positive. Plan is to proceed with a central line. We will approach this from the right side, most likely right subclavian vein approach to avoid the area of recurrent cellulitis. Potential risks of the procedure including bleeding, infection, injury to underlying viscera such as lung and vasculature, and problems with the catheter becoming occluded or infected were all gone over, and the patient wishes to proceed. DETAILS OF PROCEDURE: The patient was taken to the operating room and placed in the supine position. After the right upper chest and neck areas were prepped and draped, the right subclavian vein was cannulated and a guidewire manipulated from there into the superior vena cava. Some additional local was then injected puncture site roughly 4 fingerbreadths below that was made and the Smith catheter tunneled through that area, and this was then cut such that the catheter would lie in the area of the right atrium vena cava junction the Smith catheter was placed without difficulty. Prior to this being placed, it was flushed with Zyvox-containing saline solution and then heparinized saline, and the catheter was sutured at the skin exit site with a 3-0 nylon stitch and the original puncture site with a 4-0 Vicryl subdermal stitch. Dressing was applied. Chest x-ray showed good catheter position. Good in and outflow was confirmed, and all ports were once again flushed with heparinized saline. Pete Barboza MD /[id number]
== END 2021-09-09 15:15 | disposition home or self-care (01) ==
LOC: JP.SDS 09:14
PROVIDERS: ATTEND Surgery
DX: Z45.2 Encounter for adjustment and management of vascular access device (principal); J45.909 Unspecified asthma, uncomplicated; F17.200 Nicotine dependence, unspecified, uncomplicated; E66.9 Obesity, unspecified; Z88.2 Allergy status to sulfonamides; Z01.812 Encounter for preprocedural laboratory examination; Z20.822 Contact with and (suspected) exposure to COVID-19
CPT/HCPCS: 36556; 87635; A9270; J1642; J2020; J2250; J2704; J3010; J3490; J7121; U0002

== ENCOUNTER 2021-12-08 19:56 | Emergency (ER) | payer MEDICAID ==
[2021-12-08] MEDS ORDERED: Baclofen 10 MG Tab PO ONE (20:21)
[2021-12-08] MEDS ORDERED: Ketorolac 30 MG/ML SDV IM ONE (20:21)
[2021-12-08] MEDS ORDERED: Acetaminophen/oxyCODONE 325-5 MG Tab PO ONE (20:22)
--- NOTE | 2021-12-08 20:28 | EDM.PDOC ---
ED HPI GENERAL MEDICAL PROBLEM - General Chief Complaint: General Stated Complaint: MEDICAL VIA [facility] Time Seen by Provider: 12/08/21 20:25 Source of Information: Reports: Patient History Limitations: Reports: No Limitations - History of Present Illness INITIAL COMMENTS - FREE TEXT/NARRATIVE: pt arrived with severe pain ovwer the left buttock. She is very uncomfortable with moving or walking,. Onset: Other ( came on in the nite and did get worse during the day. ) Duration: Getting Worse Location: Reports: Back, Lower Extremity, Left, Radiates to, Other ( radiates down the left lower leg. 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: Dysfunctional Uterine Bleeding, Endometriosis, Fibroids, Other TEST ENGINE OPERATOR History: R OVARY REMOVED Musculoskeletal History: Reports: None, Arthritis, Fracture, Gout, Osteoarthritis Psychiatric History: Reports: Depression Endocrine/Metabolic History: Reports: Obesity/BMI 30+ - Infectious Disease History Infectious Disease History: Reports: Chicken Pox - Past Surgical History HEENT Surgical History: Reports: Adenoidectomy, Tonsillectomy Respiratory Surgical History: Reports: None GI Surgical History: Reports: EGD Female Surgical History: Reports: Hysterectomy, Salpingo-Oophorectomy Endocrine Surgical History: Reports: None Musculoskeletal Surgical History: Reports: None Dermatological Surgical History: Reports: None Social & Family History - Family History Family Medical History: No Pertinent Family History - Tobacco Use Tobacco Use Status *Q: Current Every Day Tobacco User Years of Tobacco use: 45 Packs/Tins Daily: 1 - Caffeine Use Caffeine Use: Reports: Energy Drinks, Soda - Recreational Drug Use Recreational Drug Use: No ED ROS GENERAL - Review of Systems Review Of Systems: See Below Constitutional: Reports: No Symptoms HEENT: Reports: No Symptoms Respiratory: Reports: No Symptoms Cardiovascular: Reports: No Symptoms Endocrine: Reports: No Symptoms GI/Abdominal: Reports: No Symptoms : Reports: No Symptoms Musculoskeletal: Reports: Leg Pain, Other ( pain over the buttock. ) Skin: Reports: No Symptoms ED EXAM, GENERAL - Physical Exam Exam: See Below Free Text/Narrative:: pt arrived with pain over the left buttock and she is having alot of difficulty moving. She was given totodol, baclofen and dilaudid without great relief. Exam Limited By: No Limitations General Appearance: Alert, Anxious, Severe Distress Ears: Normal TMs Nose: Normal Inspection Throat/Mouth: Normal Inspection Head: Atraumatic Neck: Normal Inspection Respiratory/Chest: No Respiratory Distress Cardiovascular: Regular Rate, Rhythm GI/Abdominal: Soft, No Mass (Female) Exam: Deferred Rectal (Female) Exam: Deferred Back Exam: Other (pt is extrmely tender over the left buttock. She is having a great deal of difficulty getting in and out of bed. ) Extremities: Normal Inspection Neurological: Other (positive straight leg rasing. ) Psychiatric: Anxious Course - Vital Signs Last Recorded V/S: Last Vital Signs Temp 36.8 C 12/08/21 20:04 Pulse 75 12/08/21 21:03 Resp 16 12/08/21 20:04 BP 136/73 12/08/21 21:03 Pulse Ox 98 12/08/21 22:00 - Orders/Labs/Meds Meds: Medications Discontinued Medications Generic Name Dose Route Start Last Admin Trade Name Freq PRN Reason Stop Dose Admin Baclofen 10 mg 12/08/21 20:21 12/08/21 20:34 Baclofen 10 Mg Tab PO 12/08/21 20:22 10 mg ONETIME ONE Administration Hydromorphone HCl 0.5 mg 12/08/21 21:17 12/08/21 21:58 Hydromorphone 0.5 Mg/0.5 Ml Syringe IM 12/08/21 21:18 0.5 mg ONETIME ONE Administration Ketorolac Tromethamine 60 mg 12/08/21 20:21 12/08/21 20:35 Ketorolac 30 Mg/Ml Sdv IM 12/08/21 20:22 60 mg ONETIME ONE Administration Lorazepam 1 mg 12/08/21 22:17 12/08/21 22:27 Lorazepam 1 Mg Tab PO 12/08/21 22:18 1 mg ONETIME ONE Administration Oxycodone/Acetaminophen 1 tab 12/08/21 20:22 12/08/21 20:34 Acetaminophen/Oxycodone 325-5 Mg Tab PO 12/08/21 20:23 1 tab ONETIME ONE Administration - Re-Assessments/Exams Free Text/Narrative Re-Assessment/Exam: 12/12/21 07:58 lumbar spine series shows no fracture she had degenerative changes at lower lumbar. She has not gotten really good relief with her meds. Departure - Departure Time of Disposition: 22:54 Disposition: Home, Self-Care 01 Condition: Fair Clinical Impression: Pain in left buttock - Discharge Information Instructions: Muscle Pain, Adult Referrals: PCP,None [Primary Care Provider] - Forms: ED Department Discharge Care Plan Goals: moist heat to the left buttock. , medrol dospak to decrease inflamation, baclofen 10 mg bid to relax muscles, percocet 5/325 q6h prn for radicular pain, rtc tomorrow for a MRI. appt with Dr Peter on thursday or thu. Sepsis Event Note (ED) - Evaluation Sepsis Screening Result: No Definite Risk
[2021-12-08 21:04] VITALS: BP 136/73; PULSE 75
[2021-12-08] MEDS ORDERED: HYDROmorphone 0.5 MG/0.5 ML Syringe IM ONE (21:17)
[2021-12-08] MEDS ORDERED: LORazepam 1 MG Tab PO ONE (22:17)
--- NOTE | 2021-12-09 11:46 | CR ---
Lumbar Spine Min 4V CLINICAL HISTORY: Severe pain over left buttocks FINDINGS: The vertebral body heights are maintained. There is diffuse disc space narrowing with spondylosis. There is a minimal anterolisthesis of L5 on S1. There is mild retrolisthesis of L1 on L2. This is due to facet disease. IMPRESSION: Diffuse degenerative disc changes Osteoarthritis
== END 2021-12-09 00:12 | disposition home or self-care (01) ==
LOC: JP.ED 19:56
DX: M53.3 Sacrococcygeal disorders, not elsewhere classified (principal); J45.909 Unspecified asthma, uncomplicated; E66.9 Obesity, unspecified; Z68.41 Body mass index [BMI] 40.0-44.9, adult; Z72.0 Tobacco use; Z88.2 Allergy status to sulfonamides; Z79.899 Other long term (current) drug therapy
CPT/HCPCS: 72110; 96372; 99284; 99285; A9270; J1170; J1885

== ENCOUNTER 2022-05-21 07:10 | Inpatient (IN) | payer MEDICAID ==
[2022-05-21] MEDS ORDERED: Lactated Ringers 1,000 ML IV SCH (07:30)
[2022-05-21] MEDS ORDERED: Midazolam 1 MG/ML 2 ML SDV ONE ×2 (07:34→11:22)
[2022-05-21] MEDS ORDERED: fentaNYL 100 MCG/2 ML SDV ONE ×2 (07:34→12:51)
[2022-05-21] MEDS ORDERED: Propofol 200 MG/20 ML SDV ONE ×4 (07:34→12:32)
[2022-05-21] MEDS: Nozin Nasal Sanitizer NASBOTH SCH ×2 (07:38→21:12)
[2022-05-21] MEDS ORDERED: Bupivacaine 0.5% 50 ML MDV ONE (08:29)
[2022-05-21] MEDS ORDERED: ceFAZolin 2 GM in Premix Bag 1 BAG IV ONE (08:30)
[2022-05-21 08:32] LABS: ESTIMATED GFR 105 mL/min (>60)
[2022-05-21] MEDS ORDERED: Bupivacaine 0.5% 50 ML MDV INJECT ONE (11:35)
[2022-05-21] MEDS ORDERED: Bupivacaine 0.5% 30 ML SDV ONE (12:29)
[2022-05-21] MEDS ORDERED: Bupivacaine 0.5% 30 ML SDV INJECT ONE (12:30)
[2022-05-21] MEDS ORDERED: Ondansetron 4 MG/2 ML SDV IVPUSH PRN (13:08)
[2022-05-21] MEDS ORDERED: oxyCODONE 5 MG Tab PO PRN (13:08)
[2022-05-21] MEDS ORDERED: Albuterol 8 GM Inhaler INH PRN (13:12)
[2022-05-21] MEDS ORDERED: Morphine 2 MG/ML SYRINGE IVPUSH ONE (13:18)
[2022-05-21] MEDS: oxyCODONE 5 MG Tab PO PRN (14:28)
[2022-05-21] MEDS: Sodium Chloride 0.9% 1,000 ML IV SCH ×2 (14:29→22:52)
[2022-05-21] MEDS: ceFAZolin 1 GM in Premix Bag 1 BAG IV SCH ×2 (15:41→23:29)
[2022-05-21] MEDS: Acetaminophen 500 MG Tab PO SCH ×2 (15:41→21:15)
[2022-05-21] MEDS: HYDROmorphone 0.5 MG/0.5 ML Syringe IVPUSH PRN (17:44)
[2022-05-21] MEDS: traMADol 50 MG Tab PO PRN (19:03)
[2022-05-21] MEDS: Ketorolac 30 MG/ML SDV IVPUSH SCH (21:14)
[2022-05-21] MEDS: FLUTICASONE PROPION INH SCH (21:14)
[2022-05-21] MEDS: Docusate Sodium 100 MG Cap PO SCH (21:14)
[2022-05-21] MEDS: SALMETEROL INH SCH (21:14)
[2022-05-22] MEDS: traMADol 50 MG Tab PO PRN (01:21)
[2022-05-22] MEDS: Acetaminophen 500 MG Tab PO SCH ×4 (03:46→21:08)
[2022-05-22] MEDS: Ketorolac 30 MG/ML SDV IVPUSH SCH (04:39)
[2022-05-22] MEDS: SALMETEROL INH SCH ×2 (07:24→21:08)
[2022-05-22] MEDS: FLUTICASONE PROPION INH SCH ×2 (07:24→21:08)
[2022-05-22] MEDS: oxyCODONE 5 MG Tab PO PRN ×4 (07:43→21:05)
[2022-05-22] MEDS: ceFAZolin 1 GM in Premix Bag 1 BAG IV SCH (09:13)
[2022-05-22] MEDS: Docusate Sodium 100 MG Cap PO SCH ×2 (09:13→21:07)
[2022-05-22] MEDS: Enoxaparin 30 MG/0.3 ML Syringe SUBCUT SCH (09:15)
[2022-05-22] MEDS: Nozin Nasal Sanitizer NASBOTH SCH ×2 (09:15→21:07)
[2022-05-22] MEDS: HYDROmorphone 0.5 MG/0.5 ML Syringe IVPUSH PRN ×2 (09:27→13:53)
[2022-05-22] MEDS: Celecoxib 200 MG Cap PO SCH (21:07)
[2022-05-23] MEDS: oxyCODONE 5 MG Tab PO PRN ×3 (02:21→12:20)
[2022-05-23] MEDS: Acetaminophen 500 MG Tab PO SCH ×2 (02:22→08:19)
[2022-05-23] MEDS: SALMETEROL INH SCH (07:15)
[2022-05-23] MEDS: FLUTICASONE PROPION INH SCH (07:15)
[2022-05-23] MEDS: Nozin Nasal Sanitizer NASBOTH SCH (08:19)
[2022-05-23] MEDS: Docusate Sodium 100 MG Cap PO SCH (08:19)
[2022-05-23] MEDS: Celecoxib 200 MG Cap PO SCH (08:19)
[2022-05-23] MEDS: Enoxaparin 30 MG/0.3 ML Syringe SUBCUT SCH (08:20)
[2022-05-23 12:15] VITALS: BP 149/70; PULSE 93
== END 2022-05-23 13:05 | DRG 462 ==
LOC: JP.SDS 07:10 → JP.MS 13:08 → JP.SDS 05-22 08:49 → JP.MS 05-22 08:49
PROVIDERS: ADMIT Specialist; ATTEND Specialist
PROC: 0SRC0J9 Replacement of Right Knee Joint with Synthetic Substitute, Cemented, Open Approach (ICD-10-PCS; principal; 2022-05-21)
PROC: 0SRD0L9 Replacement of Left Knee Joint with Medial Unicondylar Synthetic Substitute, Cemented, Open Approach (ICD-10-PCS; 2022-05-21)
DX: M17.0 Bilateral primary osteoarthritis of knee (principal); F32.A Depression, unspecified; J44.9 Chronic obstructive pulmonary disease, unspecified; F17.210 Nicotine dependence, cigarettes, uncomplicated; I10 Essential (primary) hypertension; Z98.890 Other specified postprocedural states; Z79.82 Long term (current) use of aspirin; Z88.2 Allergy status to sulfonamides; Z79.899 Other long term (current) drug therapy; Z90.89 Acquired absence of other organs
CPT/HCPCS: 36415; 73560-26-LT; 73560-26-RT; 73560-LT; 73560-RT; 80053; 85027; 94640; 97110-GP; 97116-GP; 97162-GP; A9270-GY; C1713; C1776; J0690; J1170; J1650; J1885; J2250; J2270; J2704; J3010; J3490; J7030; J7120

== ENCOUNTER 2022-06-14 20:26 | Emergency (ER) | payer MEDICAID ==
[2022-06-14 20:30] VITALS: BP 116/57; PULSE 86
[2022-06-14] MEDS: oxyCODONE 5 MG Tab PO ONE (21:15)
[2022-06-14] MEDS: Ibuprofen 400 MG Tab PO ONE (21:15)
== END 2022-06-14 22:26 | disposition home or self-care (01) ==
LOC: JP.ED 20:26
DX: M54.32 Sciatica, left side (principal); J45.909 Unspecified asthma, uncomplicated; E66.9 Obesity, unspecified; Z68.41 Body mass index [BMI] 40.0-44.9, adult; Z88.2 Allergy status to sulfonamides; Z79.899 Other long term (current) drug therapy; Z90.710 Acquired absence of both cervix and uterus
CPT/HCPCS: 99284; A9270

== ENCOUNTER 2022-07-31 23:16 | Emergency (ER) | payer MEDICAID ==
[2022-07-31 23:34] VITALS: BP 94/38; PULSE 95
[2022-07-31] MEDS ORDERED: Ketorolac 30 MG/ML SDV IM ONE (23:55)
[2022-08-01] MEDS ORDERED: HYDROmorphone 1 MG/ML Syringe IM ONE (01:13)
== END 2022-08-01 02:13 | disposition home or self-care (01) ==
LOC: JP.ED 23:16
DX: M54.32 Sciatica, left side (principal); F17.210 Nicotine dependence, cigarettes, uncomplicated; E66.9 Obesity, unspecified; Z88.2 Allergy status to sulfonamides
CPT/HCPCS: 96372; 99283; J1170; J1885

== ENCOUNTER 2023-07-17 09:33 | Inpatient (IN) | payer MEDICAID ==
[~2023-07-17 09:33] MED LIST changes: +Bupivacaine 0.5% 50 ML MDV ONE; +Dexamethasone 4 MG/ML SDV ONE; +Glycopyrrolate 0.2 MG/ML 5 ML MDV ONE; +Lidocaine 1% with EPINEPHrine 1:100,000 50 ML MDV ONE; +Neostigmine Methylsulfate 1 MG/ML 5 ML Syringe ONE; +Ondansetron 4 MG/2 ML SDV ONE; +Propofol 200 MG/20 ML SDV ONE; +Rocuronium 50 MG/5 ML Vial ONE; +Succinylcholine 200 MG/10 ML MDV ONE; +fentaNYL 250 MCG/5 ML SDV ONE
[2023-07-17] MEDS ORDERED: Dextrose 5%-Lactated Ringers 1,000 ML IV SCH (10:15)
[2023-07-17] MEDS ORDERED: Scopolamine 1.5 MG Transdermal Patch TOP SCH (10:15)
[2023-07-17] MEDS ORDERED: diphenhydrAMINE 50 MG/ML SDV IVPUSH PRN ×2 (10:16→16:00)
[2023-07-17] MEDS ORDERED: Naloxone 0.4 MG/ML SDV IVPUSH PRN (10:16)
[2023-07-17] MEDS ORDERED: HYDROmorphone/Normal Saline 6 MG/30 ML PCA Vial IV PRN (10:16)
[2023-07-17] MEDS ORDERED: diphenhydrAMINE 25 MG Cap PO PRN (10:16)
[2023-07-17] MEDS ORDERED: Ondansetron 4 MG/2 ML SDV IVPUSH PRN ×2 (10:16→16:00)
[2023-07-17] MEDS ORDERED: Albuterol/Ipratropium 3.0-0.5 MG/3 ML Neb Soln NEB ONE (10:30)
[2023-07-17] MEDS ORDERED: ceFAZolin 2 GM in Premix Bag 1 BAG IV ONE (10:45)
[2023-07-17] MEDS ORDERED: Ketamine 16 MG in Sodium Chloride 0.9% 19.84 ML IV SCH (11:00)
[2023-07-17] MEDS ORDERED: Ketamine 500 MG/5 ML MDV IV SCH (11:00)
[2023-07-17] MEDS ORDERED: Ropivacaine 50 ML, dexAMETHasone 8 MG, EPINEPHrine 0.4 MG, Sodium Chloride 0.9% 27.6 ML NERVRT SCH ×4 (11:00)
[2023-07-17] MEDS ORDERED: Naloxone 0.4 MG/ML SDV IV PRN (11:00)
[2023-07-17] MEDS ORDERED: Linezolid 600 MG/300 ML Premix Bag IRR ONE (12:42)
[2023-07-17] MEDS ORDERED: fentaNYL 250 MCG/5 ML SDV ONE (12:46)
[2023-07-17] MEDS ORDERED: Lactated Ringers 1,000 ML ONE (13:04)
[2023-07-17] MEDS ORDERED: Labetalol 20 MG/4 ML Syringe ONE (13:09)
[2023-07-17] MEDS ORDERED: Ketoconazole 2% Crm 30 GM Tube ONE (13:42)
[2023-07-17] MEDS ORDERED: Rocuronium 50 MG/5 ML Vial ONE (14:16)
[2023-07-17] MEDS ORDERED: Sugammadex Sodium 200 MG/2 ML VIAL ONE (14:43)
[2023-07-17] MEDS ORDERED: Labetalol 20 MG/4 ML Syringe IVPUSH PRN (16:00)
[2023-07-17] MEDS ORDERED: Metoclopramide 10 MG/2 ML SDV IVPUSH PRN (16:00)
[2023-07-17] MEDS ORDERED: Acetaminophen 500 MG Tab PO PRN (16:00)
[2023-07-17] MEDS: Ketoconazole 2% Crm 30 GM Tube TOP SCH (16:10)
[2023-07-17] MEDS: Pantoprazole 40 MG Vial IVPUSH SCH (16:40)
[2023-07-17] MEDS ORDERED: MVI, Adult with Vitamin K 10 ML, Thiamine 200 MG, Zinc/Copper/Manganese/Selenium 1 ML i... IV SCH ×4 (17:00)
[2023-07-17] MEDS: Cyclobenzaprine 10 MG Tab PO PRN (18:23)
[2023-07-17] MEDS ORDERED: Scopolamine 1.5 MG Transdermal Patch TRDERM PRN (20:09)
[2023-07-17] MEDS ORDERED: Scopolamine 1.5 MG Transdermal Patch ONE (20:17)
[2023-07-17] MEDS: oxyCODONE 5 MG Tab PO PRN (20:43)
[2023-07-17] MEDS: ceFAZolin 2 GM in Premix Bag 1 BAG IV SCH (20:51)
[2023-07-17] MEDS: Heparin Sodium 5,000 Units/ML Vial SUBCUT SCH (20:52)
[2023-07-17] MEDS: Formoterol/Mometasone 200-5 MCG 8.8 GM Inhaler IH SCH (20:55)
[2023-07-17] MEDS: Albuterol/Ipratropium 3.0-0.5 MG/3 ML Neb Soln INH SCH (20:58)
[2023-07-17] MEDS: hydrOXYzine HCL 100 MG/2 ML SDV IM PRN (21:06)
[2023-07-17] MEDS: Albuterol/Ipratropium 3.0-0.5 MG/3 ML Neb Soln INH PRN (23:23)
[2023-07-17] MEDS: Acetaminophen 500 MG Tab PO SCH (23:23)
[2023-07-18] MEDS: oxyCODONE 5 MG Tab PO PRN ×6 (00:43→22:08)
[2023-07-18] MEDS: Dextrose 5%-Lactated Ringers 1,000 ML IV SCH ×2 (00:44→07:37)
[2023-07-18] MEDS: Cyclobenzaprine 10 MG Tab PO PRN ×2 (02:37→19:34)
[2023-07-18] MEDS: hydrOXYzine HCL 100 MG/2 ML SDV IM PRN ×2 (02:37→06:29)
[2023-07-18] MEDS: ceFAZolin 2 GM in Premix Bag 1 BAG IV SCH ×3 (04:42→20:37)
[2023-07-18 04:56] LABS: BASOPHILS ABSOLUTE AUTO 0.03 K/uL (0.00-0.10); BASOPHILS PERCENT AUTO 0.1 % (0.1-1.3); HEMATOCRIT 41.1 % (34.3-46.0); HEMOGLOBIN 13.7 g/dL (11.2-15.5); IMMATURE GRAN ABSOLUTE AUTO 0.16 K/uL (0.00-0.23); IMMATURE GRAN PERCENT AUTO 0.8 % (0.0-0.7); LYMPHOCYTES ABSOLUTE AUTO 1.81 K/uL (0.8-3.3); LYMPHOCYTES PERCENT AUTO 8.7 % (11.4-47.7); MEAN CORPUSCULAR HEMOGLOBIN 30.6 pg (31.6-35.5); MEAN CORPUSCULAR HGB CONC 33.3 g/dL (31.6-35.5); MEAN CORPUSCULAR VOLUME 91.7 fL (81.4-99.0); MONOCYTES ABSOLUTE AUTO 1.64 K/uL (0.20-0.90); MONOCYTES PERCENT AUTO 7.9 % (3.3-12.6); NEUTROPHILS ABSOLUTE AUTO 17.05 K/uL (1.0-7.6); NEUTROPHILS PERCENT AUTO 82.5 % (40.0-78.1); PLATELET COUNT,PLT 438 K/uL (130-375); RED BLOOD CELL COUNT 4.48 M/uL (3.77-5.24); WHITE BLOOD CELL COUNT,WBC 20.7 K/uL (3.2-11.0)
[2023-07-18 05:00] LABS: A/G RATIO 0.8 (1.2-2.2); ALANINE AMINOTRANSFERASE,ALT 24 U/L (12-78); ALBUMIN 2.9 g/dL (3.4-5.0); ALKALINE PHOSPHATASE 104 U/L (46-116); ASPARTATE AMNIOTRANSFERASE,AST 20 U/L (15-37); BILIRUBIN TOTAL 0.6 mg/dL (0.2-1.0); BLOOD UREA NITROGEN,BUN 14 mg/dL (7-18); CALCIUM 8.3 mg/dL (8.5-10.1); CARBON DIOXIDE,CO2 26 mmol/L (21-32); CHLORIDE,CL 101 mmol/L (100-108); CREATININE 0.8 mg/dL (0.6-1.0); EST CRCL DRUG DOSING (CG) 63.41 mL/min; ESTIMATED GFR 85 mL/min (>60); GLUCOSE RANDOM 175 mg/dL (74-106); MAGNESIUM 1.8 mg/dL (1.8-2.4); PHOSPHORUS 3.9 mg/dL (2.5-4.9); POTASSIUM,K 4.3 mmol/L (3.6-5.2); PRO B-TYPE NATRIUR PEPT,BNPPRO 49 pg/mL (5-125); PROTEIN TOTAL,TP 6.7 g/dL (6.4-8.2); SODIUM,NA 136 mmol/L (140-148)
[2023-07-18 05:12] LABS: ANION GAP 13.3 mmol/L (5.0-14.0)
[2023-07-18] MEDS: Acetaminophen 500 MG Tab PO SCH ×3 (06:27→21:05)
[2023-07-18] MEDS: Albuterol/Ipratropium 3.0-0.5 MG/3 ML Neb Soln INH SCH ×4 (06:27→21:05)
[2023-07-18] MEDS: Formoterol/Mometasone 200-5 MCG 8.8 GM Inhaler IH SCH ×2 (07:06→20:40)
[2023-07-18] MEDS ORDERED: Morphine 2 MG/ML SYRINGE IV PRN (08:02)
[2023-07-18] MEDS: Heparin Sodium 5,000 Units/ML Vial SUBCUT SCH ×2 (08:50→20:38)
[2023-07-18] MEDS: Ketoconazole 2% Crm 30 GM Tube TOP SCH (08:51)
[2023-07-18] MEDS: Docusate Sodium 100 MG Cap PO SCH ×2 (08:51→20:38)
[2023-07-18] MEDS: Celecoxib 200 MG Cap PO SCH ×2 (08:51→20:38)
[2023-07-18] MEDS: Bisacodyl 5 MG Tab PO SCH ×2 (08:51→20:38)
[2023-07-18] MEDS: Pantoprazole 40 MG Vial IVPUSH SCH (15:47)
[2023-07-18] MEDS ORDERED: MVI, Adult with Vitamin K 10 ML, Thiamine 200 MG, Zinc/Copper/Manganese/Selenium 1 ML i... IV SCH ×4 (16:00)
[2023-07-18] MEDS: Benzocaine/Cetylpyridinium/Menthol Lozenge MUCMEM PRN (18:21)
[2023-07-18] MEDS: LORazepam 1 MG Tab PO PRN (22:42)
[2023-07-19] MEDS: oxyCODONE 5 MG Tab PO PRN ×5 (02:23→22:11)
[2023-07-19] MEDS: Dextrose 5%-Lactated Ringers 1,000 ML IV SCH ×2 (02:24→23:10)
[2023-07-19] MEDS: ceFAZolin 2 GM in Premix Bag 1 BAG IV SCH (04:13)
[2023-07-19] MEDS: Acetaminophen 500 MG Tab PO SCH ×3 (06:25→21:40)
[2023-07-19] MEDS: Formoterol/Mometasone 200-5 MCG 8.8 GM Inhaler IH SCH ×2 (07:02→21:40)
[2023-07-19] MEDS: Albuterol/Ipratropium 3.0-0.5 MG/3 ML Neb Soln INH SCH ×4 (07:02→21:38)
[2023-07-19] MEDS ORDERED: Cyanocobalamin (Vitamin B12) 1,000 MCG/ML SDV IM ONE (09:00)
[2023-07-19] MEDS: LORazepam 1 MG Tab PO PRN ×3 (09:04→22:12)
[2023-07-19] MEDS: Heparin Sodium 5,000 Units/ML Vial SUBCUT SCH ×2 (09:04→19:45)
[2023-07-19] MEDS: Bisacodyl 5 MG Tab PO SCH ×2 (09:05→21:40)
[2023-07-19] MEDS: Docusate Sodium 100 MG Cap PO SCH ×2 (09:05→21:40)
[2023-07-19] MEDS: Celecoxib 200 MG Cap PO SCH ×2 (09:05→21:40)
[2023-07-19] MEDS: Ketoconazole 2% Crm 30 GM Tube TOP SCH (09:05)
[2023-07-19] MEDS: Cyclobenzaprine 10 MG Tab PO PRN ×2 (14:34→22:11)
[2023-07-19] MEDS: Pantoprazole 40 MG Vial IVPUSH SCH (16:13)
[2023-07-19] MEDS: Albuterol/Ipratropium 3.0-0.5 MG/3 ML Neb Soln INH PRN (18:31)
[2023-07-20] MEDS: oxyCODONE 5 MG Tab PO PRN ×4 (06:08→22:16)
[2023-07-20] MEDS: Acetaminophen 500 MG Tab PO SCH ×3 (06:08→22:17)
[2023-07-20] MEDS: LORazepam 1 MG Tab PO PRN ×3 (06:09→20:29)
[2023-07-20] MEDS: Cyclobenzaprine 10 MG Tab PO PRN ×2 (06:09→23:00)
[2023-07-20] MEDS: Benzocaine/Cetylpyridinium/Menthol Lozenge MUCMEM PRN (06:12)
[2023-07-20] MEDS: Formoterol/Mometasone 200-5 MCG 8.8 GM Inhaler IH SCH ×2 (07:25→20:21)
[2023-07-20] MEDS: Albuterol/Ipratropium 3.0-0.5 MG/3 ML Neb Soln INH SCH ×4 (07:25→20:21)
[2023-07-20] MEDS: Bisacodyl 5 MG Tab PO SCH ×2 (08:56→20:22)
[2023-07-20] MEDS: Celecoxib 200 MG Cap PO SCH ×2 (08:56→20:22)
[2023-07-20] MEDS: Heparin Sodium 5,000 Units/ML Vial SUBCUT SCH ×2 (08:56→20:22)
[2023-07-20] MEDS: Ketoconazole 2% Crm 30 GM Tube TOP SCH (08:56)
[2023-07-20] MEDS: Docusate Sodium 100 MG Cap PO SCH ×2 (08:56→20:22)
[2023-07-20] MEDS: Dextrose 5%-Lactated Ringers 1,000 ML IV SCH ×2 (09:01→16:41)
[2023-07-20] MEDS ORDERED: Polyethylene Glycol 3350 Powder 17 GM Packet PO ONE (09:30)
[2023-07-20] MEDS ORDERED: Polyethylene Glycol 3350 Powder 119 GM Bottle PO ONE (09:30)
[2023-07-20] MEDS: VERIFY SCOP PATCH SCH (16:22)
[2023-07-20] MEDS ORDERED: Pantoprazole 40 MG Tab.CR PO SCH (16:30)
[2023-07-20] MEDS ORDERED: Furosemide 20 MG/2 ML VIAL IVPUSH ONE (17:30)
[2023-07-20] MEDS: hydrOXYzine HCL 100 MG/2 ML SDV IM PRN (23:06)
[2023-07-21] MEDS: LORazepam 1 MG Tab PO PRN (02:43)
[2023-07-21] MEDS: oxyCODONE 5 MG Tab PO PRN (02:43)
[2023-07-21] MEDS: Dextrose 5%-Lactated Ringers 1,000 ML IV SCH (03:12)
[2023-07-21 04:20] LABS: BASOPHILS ABSOLUTE AUTO 0.06 K/uL (0.00-0.10); BASOPHILS PERCENT AUTO 0.4 % (0.1-1.3); EOSINOPHILS ABSOLUTE AUTO 0.37 K/uL (0.00-0.40); EOSINOPHILS PERCENT AUTO 2.3 % (0.0-5.4); HEMATOCRIT 35.9 % (34.3-46.0); HEMOGLOBIN 11.9 g/dL (11.2-15.5); IMMATURE GRAN ABSOLUTE AUTO 0.12 K/uL (0.00-0.23); IMMATURE GRAN PERCENT AUTO 0.7 % (0.0-0.7); LYMPHOCYTES ABSOLUTE AUTO 2.14 K/uL (0.8-3.3); LYMPHOCYTES PERCENT AUTO 13.3 % (11.4-47.7); MEAN CORPUSCULAR HEMOGLOBIN 30.4 pg (31.6-35.5); MEAN CORPUSCULAR HGB CONC 33.1 g/dL (31.6-35.5); MEAN CORPUSCULAR VOLUME 91.6 fL (81.4-99.0); MONOCYTES ABSOLUTE AUTO 1.44 K/uL (0.20-0.90); NEUTROPHILS ABSOLUTE AUTO 11.93 K/uL (1.0-7.6); NEUTROPHILS PERCENT AUTO 74.3 % (40.0-78.1); PLATELET COUNT,PLT 400 K/uL (130-375); RED BLOOD CELL COUNT 3.92 M/uL (3.77-5.24); WHITE BLOOD CELL COUNT,WBC 16.1 K/uL (3.2-11.0)
[2023-07-21 04:51] LABS: A/G RATIO 0.6 (1.2-2.2); ALANINE AMINOTRANSFERASE,ALT 23 U/L (12-78); ALBUMIN 2.7 g/dL (3.4-5.0); ALKALINE PHOSPHATASE 109 U/L (46-116); ANION GAP 11.4 mmol/L (5.0-14.0); ASPARTATE AMNIOTRANSFERASE,AST 26 U/L (15-37); BILIRUBIN TOTAL 0.8 mg/dL (0.2-1.0); BLOOD UREA NITROGEN,BUN 12 mg/dL (7-18); CALCIUM 8.9 mg/dL (8.5-10.1); CARBON DIOXIDE,CO2 29 mmol/L (21-32); CHLORIDE,CL 97 mmol/L (100-108); CREATININE 0.7 mg/dL (0.6-1.0); EST CRCL DRUG DOSING (CG) 72.44 mL/min; ESTIMATED GFR 100 mL/min (>60); GLUCOSE RANDOM 120 mg/dL (74-106); MAGNESIUM 1.7 mg/dL (1.8-2.4); PHOSPHORUS 4.2 mg/dL (2.5-4.9); POTASSIUM,K 3.4 mmol/L (3.6-5.2); PRO B-TYPE NATRIUR PEPT,BNPPRO 106 pg/mL (5-125); SODIUM,NA 134 mmol/L (140-148)
[2023-07-21] MEDS: Acetaminophen 500 MG Tab PO SCH (05:07)
[2023-07-21 06:32] VITALS: BP 147/93; PULSE 98
[2023-07-21] MEDS: Formoterol/Mometasone 200-5 MCG 8.8 GM Inhaler IH SCH (07:00)
[2023-07-21] MEDS: Albuterol/Ipratropium 3.0-0.5 MG/3 ML Neb Soln INH SCH (07:00)
[2023-07-21] MEDS ORDERED: Potassium Chloride 20 MEQ Tab.ER PO SCH (09:00)
[2023-07-21] MEDS ORDERED: Magnesium Oxide 400 MG Tab PO ONE (09:00)
[2023-07-21] MEDS ORDERED: Bisacodyl 5 MG Tab PO SCH (09:00)
[2023-07-21] MEDS: Celecoxib 200 MG Cap PO SCH (09:17)
[2023-07-21] MEDS: Docusate Sodium 100 MG Cap PO SCH (09:17)
[2023-07-21] MEDS: Bisacodyl 5 MG Tab PO SCH (09:17)
[2023-07-21] MEDS: Heparin Sodium 5,000 Units/ML Vial SUBCUT SCH (09:17)
[2023-07-21] MEDS: Ketoconazole 2% Crm 30 GM Tube TOP SCH (09:18)
[2023-07-21] MEDS: VERIFY SCOP PATCH SCH (09:18)
== END 2023-07-21 09:50 | disposition home or self-care (01) | DRG 355 ==
LOC: JP.SDS 09:33 → JP.MS 15:10
PROVIDERS: ADMIT Surgery; ATTEND Surgery
PROC: 0WUF0JZ Supplement Abdominal Wall with Synthetic Substitute, Open Approach (ICD-10-PCS; principal; 2023-07-17)
PROC: 0WUF0JZ Supplement Abdominal Wall with Synthetic Substitute, Open Approach (ICD-10-PCS; 2023-07-17)
DX: K42.0 Umbilical hernia with obstruction, without gangrene (principal); K43.0 Incisional hernia with obstruction, without gangrene; Z96.653 Presence of artificial knee joint, bilateral; J44.9 Chronic obstructive pulmonary disease, unspecified; F32.A Depression, unspecified; F17.210 Nicotine dependence, cigarettes, uncomplicated; Z90.89 Acquired absence of other organs; Z87.81 Personal history of (healed) traumatic fracture; Z88.2 Allergy status to sulfonamides
CPT/HCPCS: 36415; 51798; 71046; 71046-26; 80053; 83735; 83880; 84100; 85025; 88302; 94640; A9270-GY; C1713; C1781; C9113; J0131; J0171; J0330; J0690; J1100; J1170; J1200; J1644; J1940; J2020; J2185; J2270; J2405; J2704; J2710; J2765; J2795; J3010; J3410; J3411; J3420; J3490; J7120; J7121; J7620

== ENCOUNTER 2023-08-22 12:49 | Emergency (ER) | payer MEDICAID ==
[2023-08-22] MEDS ORDERED: Naloxone 0.4 MG/ML SDV IVPUSH PRN (15:24)
[2023-08-22] MEDS ORDERED: HYDROmorphone 0.5 MG/0.5 ML Syringe IM ONE (15:24)
[2023-08-22] MEDS ORDERED: cefTRIAXone 1 GM Vial IM ONE ×2 (15:42→16:00)
[2023-08-22 15:48] LABS: BASOPHILS ABSOLUTE AUTO 0.13 K/uL (0.00-0.10); BASOPHILS PERCENT AUTO 0.7 % (0.1-1.3); EOSINOPHILS ABSOLUTE AUTO 0.25 K/uL (0.00-0.40); EOSINOPHILS PERCENT AUTO 1.4 % (0.0-5.4); HEMATOCRIT 32.4 % (34.3-46.0); HEMOGLOBIN 10.7 g/dL (11.2-15.5); IMMATURE GRAN ABSOLUTE AUTO 0.14 K/uL (0.00-0.23); IMMATURE GRAN PERCENT AUTO 0.8 % (0.0-0.7); LYMPHOCYTES ABSOLUTE AUTO 3.12 K/uL (0.8-3.3); LYMPHOCYTES PERCENT AUTO 17.3 % (11.4-47.7); MEAN CORPUSCULAR HEMOGLOBIN 28.8 pg (31.6-35.5); MEAN CORPUSCULAR VOLUME 87.3 fL (81.4-99.0); MONOCYTES ABSOLUTE AUTO 2.15 K/uL (0.20-0.90); MONOCYTES PERCENT AUTO 11.9 % (3.3-12.6); NEUTROPHILS ABSOLUTE AUTO 12.24 K/uL (1.0-7.6); NEUTROPHILS PERCENT AUTO 67.9 % (40.0-78.1); PLATELET COUNT,PLT 698 K/uL (130-375); RED BLOOD CELL COUNT 3.71 M/uL (3.77-5.24)
[2023-08-22] MEDS ORDERED: cefTRIAXone 2 GM in Sodium Chloride 0.9% 50 ML IV ONE (16:00)
[2023-08-22 16:05] LABS: CALCIUM 8.6 mg/dL (8.5-10.1); CREATININE 0.7 mg/dL (0.6-1.0); EST CRCL DRUG DOSING (CG) 72.47 mL/min; POTASSIUM,K 3.1 mmol/L (3.6-5.2)
[2023-08-22 16:06] LABS: ANION GAP 17.1 mmol/L (5.0-14.0)
[2023-08-22 16:21] LABS: LACTIC ACID 1.5 mmol/L (0.4-2.0)
[2023-08-22] MEDS ORDERED: Clindamycin HCl 150 MG Cap PO ONE (16:46)
[2023-08-22] MEDS ORDERED: Prochlorperazine 10 MG Tab PO ONE (16:46)
[2023-08-22] MEDS ORDERED: Potassium Chloride 20 MEQ Tab.ER PO ONE (16:48)
[2023-08-22 17:00] VITALS: BP 142/68; PULSE 108
== END 2023-08-22 18:40 | disposition home or self-care (01) ==
LOC: JP.ED 12:49
DX: S31.109S Unspecified open wound of abdominal wall, unspecified quadrant without penetration into peritoneal cavity, sequela (principal); L08.9 Local infection of the skin and subcutaneous tissue, unspecified; L02.211 Cutaneous abscess of abdominal wall; J45.909 Unspecified asthma, uncomplicated; E66.9 Obesity, unspecified; Z79.899 Other long term (current) drug therapy; Z88.2 Allergy status to sulfonamides
CPT/HCPCS: 36415; 74176; 80048; 83605; 85025; 86140; 87040; 87077; 87186; 96372; 99284; A9270; J0696; J1170; Q0164

== ENCOUNTER 2023-08-23 13:37 | Inpatient (IN) | payer MEDICAID ==
[2023-08-23] MEDS ORDERED: Sodium Chloride 0.9% 1,000 ML IV SCH (14:15)
[2023-08-23] MEDS ORDERED: Albuterol 6.7 GM Inhaler INH PRN (14:17)
[2023-08-23] MEDS ORDERED: Clindamycin HCl 150 MG Cap PO SCH (14:45)
[2023-08-23 15:00] LABS: BASOPHILS ABSOLUTE AUTO 0.07 K/uL (0.00-0.10); BASOPHILS PERCENT AUTO 0.5 % (0.1-1.3); EOSINOPHILS ABSOLUTE AUTO 0.34 K/uL (0.00-0.40); EOSINOPHILS PERCENT AUTO 2.4 % (0.0-5.4); HEMATOCRIT 29.6 % (34.3-46.0); HEMOGLOBIN 9.8 g/dL (11.2-15.5); IMMATURE GRAN ABSOLUTE AUTO 0.15 K/uL (0.00-0.23); LYMPHOCYTES PERCENT AUTO 15.3 % (11.4-47.7); MEAN CORPUSCULAR HEMOGLOBIN 29.1 pg (31.6-35.5); MEAN CORPUSCULAR HGB CONC 33.1 g/dL (31.6-35.5); MEAN CORPUSCULAR VOLUME 87.8 fL (81.4-99.0); MONOCYTES ABSOLUTE AUTO 1.86 K/uL (0.20-0.90); NEUTROPHILS ABSOLUTE AUTO 9.73 K/uL (1.0-7.6); NEUTROPHILS PERCENT AUTO 67.8 % (40.0-78.1); PLATELET COUNT,PLT 575 K/uL (130-375); RED BLOOD CELL COUNT 3.37 M/uL (3.77-5.24); WHITE BLOOD CELL COUNT,WBC 14.4 K/uL (3.2-11.0)
[2023-08-23] MEDS: cefTRIAXone 1 GM in Sodium Chloride 0.9% 50 ML IV SCH (15:01)
[2023-08-23] MEDS: Dextrose 5%-0.9% NaCl 1,000 ML IV SCH (15:02)
[2023-08-23] MEDS: Acetaminophen 500 MG Tab PO SCH ×2 (15:04→22:19)
[2023-08-23 15:22] LABS: A/G RATIO 0.5 (1.2-2.2); ALANINE AMINOTRANSFERASE,ALT 12 U/L (12-78); ALBUMIN 2.2 g/dL (3.4-5.0); ALKALINE PHOSPHATASE 89 U/L (46-116); ASPARTATE AMNIOTRANSFERASE,AST 13 U/L (15-37); BILIRUBIN TOTAL 0.2 mg/dL (0.2-1.0); BLOOD UREA NITROGEN,BUN 9 mg/dL (7-18); CARBON DIOXIDE,CO2 30 mmol/L (21-32); CHLORIDE,CL 100 mmol/L (100-108); CREATININE 0.6 mg/dL (0.6-1.0); ESTIMATED GFR 104 mL/min (>60); GLUCOSE RANDOM 104 mg/dL (74-106); POTASSIUM,K 3.1 mmol/L (3.6-5.2); PROTEIN TOTAL,TP 6.8 g/dL (6.4-8.2); SODIUM,NA 136 mmol/L (140-148)
[2023-08-23 15:24] LABS: ANION GAP 9.1 mmol/L (5.0-14.0)
[2023-08-23] MEDS: Clindamycin in 0.9 % Sod Chlor 600 MG in Premix Bag 1 BAG IV SCH ×2 (20:03)
[2023-08-23] MEDS: Docusate Sodium 100 MG Cap PO SCH (20:06)
[2023-08-23] MEDS: Formoterol/Mometasone 200-5 MCG 8.8 GM Inhaler IH SCH (20:06)
[2023-08-24 03:51] LABS: APPEARANCE,URINE CLEAR (CLEAR); BILIRUBIN,URINE NEGATIVE (NEGATIVE); COLOR,URINE YELLOW (YELLOW); GLUCOSE,URINE NEGATIVE (NEGATIVE); KETONES,URINE NEGATIVE (NEGATIVE); LEUKOCYTE ESTERASE,URINE NEGATIVE (NEGATIVE); NITRITE,URINE NEGATIVE (NEGATIVE); OCCULT BLOOD,URINE NEGATIVE (NEGATIVE); PH,URINE 6.5 (5.0-8.0); PROTEIN,URINE NEGATIVE (NEGATIVE); UROBILINOGEN,URINE 0.2 EU/dL (0.2-1.0)
[2023-08-24] MEDS: Clindamycin in 0.9 % Sod Chlor 600 MG in Premix Bag 1 BAG IV SCH ×6 (04:43→19:30)
[2023-08-24] MEDS: Dextrose 5%-0.9% NaCl 1,000 ML IV SCH ×2 (04:44→18:06)
[2023-08-24 05:08] LABS: AMORPHOUS SEDIMENT,URINE NOT SEEN; BACTERIA,URINE FEW; EPITHELIAL CELLS,URINE FEW; MUCUS,URINE NOT SEEN; RBC,URINE 0-5 (0-5); WBC,URINE 0-5 (0-5)
[2023-08-24] MEDS: Acetaminophen 500 MG Tab PO SCH ×5 (06:35→21:50)
[2023-08-24] MEDS: Formoterol/Mometasone 200-5 MCG 8.8 GM Inhaler IH SCH ×2 (07:28→20:52)
[2023-08-24] MEDS: Potassium Chloride 20 MEQ, Lidocaine 1% 2 ML in Sodium Chloride 0.9% 100 ML IV SCH ×3 (08:31→13:17)
[2023-08-24] MEDS: Docusate Sodium 100 MG Cap PO SCH ×2 (08:34→20:52)
[2023-08-24] MEDS: cefTRIAXone 1 GM in Sodium Chloride 0.9% 50 ML IV SCH (15:21)
[2023-08-24] MEDS ORDERED: Fluconazole 150 MG Tab PO ONE (20:29)
[2023-08-25 04:34] LABS: HEMOGLOBIN 9.4 g/dL (11.2-15.5); MEAN CORPUSCULAR HEMOGLOBIN 28.5 pg (31.6-35.5); MEAN CORPUSCULAR HGB CONC 31.3 g/dL (31.6-35.5); MEAN CORPUSCULAR VOLUME 90.9 fL (81.4-99.0); RED BLOOD CELL COUNT 3.3 M/uL (3.77-5.24); WHITE BLOOD CELL COUNT,WBC 9.1 K/uL (3.2-11.0)
[2023-08-25] MEDS: Clindamycin in 0.9 % Sod Chlor 600 MG in Premix Bag 1 BAG IV SCH ×6 (04:58→20:45)
[2023-08-25] MEDS: Acetaminophen 500 MG Tab PO SCH ×3 (05:00→22:47)
[2023-08-25 05:01] LABS: A/G RATIO 0.5 (1.2-2.2); ALANINE AMINOTRANSFERASE,ALT 13 U/L (12-78); ALBUMIN 2.1 g/dL (3.4-5.0); ALKALINE PHOSPHATASE 77 U/L (46-116); ASPARTATE AMNIOTRANSFERASE,AST 10 U/L (15-37); BILIRUBIN TOTAL 0.2 mg/dL (0.2-1.0); BLOOD UREA NITROGEN,BUN 4 mg/dL (7-18); CALCIUM 8.2 mg/dL (8.5-10.1); CARBON DIOXIDE,CO2 26 mmol/L (21-32); CHLORIDE,CL 106 mmol/L (100-108); CREATININE 0.5 mg/dL (0.6-1.0); EST CRCL DRUG DOSING (CG) 103.17 mL/min; ESTIMATED GFR 109 mL/min (>60); GLUCOSE RANDOM 99 mg/dL (74-106); MAGNESIUM 1.8 mg/dL (1.8-2.4); PHOSPHORUS 3.5 mg/dL (2.5-4.9); POTASSIUM,K 3.4 mmol/L (3.6-5.2); PROTEIN TOTAL,TP 6.7 g/dL (6.4-8.2); SODIUM,NA 140 mmol/L (140-148)
[2023-08-25 05:08] LABS: ANION GAP 11.4 mmol/L (5.0-14.0)
[2023-08-25] MEDS: Formoterol/Mometasone 200-5 MCG 8.8 GM Inhaler IH SCH ×2 (06:57→22:46)
[2023-08-25] MEDS ORDERED: Potassium Chloride 20 MEQ Tab.ER PO ONE ×2 (08:00→12:00)
[2023-08-25] MEDS: Albumin Human 25 GM in Premix Bag 1 BAG IV SCH (08:34)
[2023-08-25] MEDS: Dextrose 5%-0.9% NaCl 1,000 ML IV SCH (08:34)
[2023-08-25] MEDS: Docusate Sodium 100 MG Cap PO SCH ×2 (09:40→22:46)
[2023-08-25] MEDS: cefTRIAXone 1 GM in Sodium Chloride 0.9% 50 ML IV SCH (13:51)
[2023-08-26] MEDS: Clindamycin in 0.9 % Sod Chlor 600 MG in Premix Bag 1 BAG IV SCH ×2 (05:06)
[2023-08-26] MEDS: Acetaminophen 500 MG Tab PO SCH (05:06)
[2023-08-26 05:16] LABS: HEMATOCRIT 30.4 % (34.3-46.0); HEMOGLOBIN 9.6 g/dL (11.2-15.5); MEAN CORPUSCULAR HEMOGLOBIN 28.6 pg (31.6-35.5); MEAN CORPUSCULAR HGB CONC 31.6 g/dL (31.6-35.5); MEAN CORPUSCULAR VOLUME 90.5 fL (81.4-99.0); RED BLOOD CELL COUNT 3.36 M/uL (3.77-5.24); WHITE BLOOD CELL COUNT,WBC 8.8 K/uL (3.2-11.0)
[2023-08-26 05:42] LABS: A/G RATIO 0.5 (1.2-2.2); ALANINE AMINOTRANSFERASE,ALT 13 U/L (12-78); ALBUMIN 2.4 g/dL (3.4-5.0); ALKALINE PHOSPHATASE 75 U/L (46-116); ANION GAP 8.6 mmol/L (5.0-14.0); ASPARTATE AMNIOTRANSFERASE,AST 11 U/L (15-37); BILIRUBIN TOTAL 0.2 mg/dL (0.2-1.0); CALCIUM 8.8 mg/dL (8.5-10.1); CARBON DIOXIDE,CO2 27 mmol/L (21-32); CHLORIDE,CL 105 mmol/L (100-108); CREATININE 0.5 mg/dL (0.6-1.0); EST CRCL DRUG DOSING (CG) 103.17 mL/min; ESTIMATED GFR 109 mL/min (>60); GLUCOSE RANDOM 95 mg/dL (74-106); MAGNESIUM 1.9 mg/dL (1.8-2.4); PHOSPHORUS 4.1 mg/dL (2.5-4.9); POTASSIUM,K 3.8 mmol/L (3.6-5.2); PROTEIN TOTAL,TP 7.1 g/dL (6.4-8.2); SODIUM,NA 141 mmol/L (140-148)
[2023-08-26 05:47] LABS: BLOOD UREA NITROGEN,BUN 3 mg/dL (7-18)
[2023-08-26 05:59] VITALS: BP 153/87; PULSE 70
[2023-08-26] MEDS: Formoterol/Mometasone 200-5 MCG 8.8 GM Inhaler IH SCH (07:18)
[2023-08-26] MEDS: Albumin Human 25 GM in Premix Bag 1 BAG IV SCH (07:23)
[2023-08-26] MEDS: Docusate Sodium 100 MG Cap PO SCH (09:02)
[2023-08-26] MEDS ORDERED: Levofloxacin 250 MG Tab PO SCH (10:00)
== END 2023-08-26 09:45 | disposition home health service (06) | DRG 863 ==
LOC: JP.MS 13:37
PROVIDERS: ADMIT Internal Medicine; ATTEND Internal Medicine
DX: T81.49XA Infection following a procedure, other surgical site, initial encounter (principal); J45.909 Unspecified asthma, uncomplicated; M10.9 Gout, unspecified; M19.90 Unspecified osteoarthritis, unspecified site; F32.A Depression, unspecified; E87.6 Hypokalemia; E66.9 Obesity, unspecified; Z96.659 Presence of unspecified artificial knee joint; Z90.89 Acquired absence of other organs; Z98.890 Other specified postprocedural states; Z88.2 Allergy status to sulfonamides; Z90.710 Acquired absence of both cervix and uterus; Z90.721 Acquired absence of ovaries, unilateral; Z68.37 Body mass index [BMI] 37.0-37.9, adult
CPT/HCPCS: 36415; 80053; 81001; 83735; 84100; 85025; 85027; 87070; 87077; 87086; 87186; 87205; 94640; A9270-GY; J0696; J3480; J3490; P9047; U0002

== ENCOUNTER 2024-03-22 22:35 | Emergency (ER) | payer MEDICARE, MEDICAID ==
[2024-03-22 23:01] VITALS: BP 102/69; PULSE 94
== END 2024-03-23 00:20 | disposition home or self-care (01) ==
LOC: JP.ED 22:35
DX: H66.004 Acute suppurative otitis media without spontaneous rupture of ear drum, recurrent, right ear (principal); F17.210 Nicotine dependence, cigarettes, uncomplicated; J45.909 Unspecified asthma, uncomplicated; Z88.2 Allergy status to sulfonamides; Z79.51 Long term (current) use of inhaled steroids; Z90.710 Acquired absence of both cervix and uterus
CPT/HCPCS: 99282